=== PATIENT | male | born 1980 | race Caucasian/White ===

== ENCOUNTER → 2023-05-28 | Outpatient (CLI) | payer OTHER, SELFPAY ==
[2023-05-28 10:15] LABS: Absolute Lymphocyte Count 2.23 X10^3/uL (0.83-4.51); Absolute Neutrophil Count 3.9 X10^3/uL (2.0-7.7); Basophil# 0.04 X10^3/uL; Basophil% 0.6 % (0-1); Eosinophils% 1.5 % (0-5); Hematocrit 42.4 % (40-54); Lymphocyte # 2.23 X10^3/ul (0.83-4.51); Lymphocyte % 32.6 % (19-41); Mean Corpuscular Hgb 29.9 pg (27.0-32.0); Mean Corpuscular Volume 90.4 fL (80-94); Mean Platelet Vol. 9.8 fl (6.2-12.0); Monocyte# 0.62 X10^3/uL; Monocyte% 9.1 % (0-10); NRBC Flagged by Analyzer 0 % (0-5); Neutrophil # 3.85 X10^3/uL (2.7-7.7); Neutrophil % 56.1 % (47-70); Platelet Count 317 K/mm3 (150-450); RBC Distribution Width CV 12.9 % (11.6-14.6); RBC Distribution Width SD 42.4 fl (35.1-43.9); Red Blood Count 4.69 M/mm3 (4.6-6.2); White Blood Count 6.9 K/mm3 (4.4-11.0)
[2023-05-28 11:01] LABS: ALB/GLOB Ratio 1.1 RATIO (0.9-2.4); AST(SGOT) 17 U/L (15-37); Alanine Aminotransfer ALT/SGPT 33 U/L (16-61); Alkaline Phosphatase 71 U/L (45-117); Anion Gap 6 (5-15); BUN 14 mg/dL (7-18); Calcium,Total 9.3 mg/dL (8.5-10.1); Chloride 109 mmol/L (98-107); Cholesterol 200 mg/dL (200); Creatinine, Serum 1.27 mg/dL (0.70-1.30); EST Glomerular Filtration Rate 66 mL/min (>60); Est Glom Filt Rate - Afr Amer 80 mL/min (>60); Globulin 3.8 g/dL (2.2-4.2); Glucose 102 mg/dL (74-106); High Density Lipoprotein 43 mg/dL; Potassium 4.2 mmol/L (3.5-5.1); Protein, Total 7.8 g/dL (6.4-8.2); Sodium Level 140 mmol/L (136-145); Thyroid Stim Hormone (TSH) 3.12 uIU/mL (0.358-3.74); Triglycerides 158 mg/dL; Very Low Density Lipoprotein 32 mg/dL (5-40)
== END | disposition home or self-care (01) ==
LOC: MTLAB 07:36
PROVIDERS: PCP Family Medicine; Visit Provider Family Medicine
DX: Z00.00 Encounter for general adult medical examination without abnormal findings (principal)
CPT/HCPCS: 36415; 80053; 80061; 84443; 85025

== ENCOUNTER 2024-02-23 17:09 | Inpatient (IN) | payer OTHER, SELFPAY ==
[2024-02-23] VITALS (12 sets, daily range): BP systolic 104–155; BP diastolic 61–115; PULSE 75–120; RESP 16–19; TEMP 36.2–38.5; O2SAT 95–100; BMI 38.6
--- NOTE | 2024-02-23 17:21 | CT_ITS ---
STUDY: CT ABDOMEN AND PELVIS WITH CONTRAST REASON FOR EXAM: Male, 44 years old. RLQ abd pain RADIATION DOSAGE (If Supplied By Facility): CTDIvol = ( 15.41 ) mGy, DLP = ( 1350.2 ) mGycm TECHNIQUE: Transaxial images were obtained from the dome of the diaphragm to the symphysis pubis without oral contrast. IV 100mL Isovue-370 was administered. Sagittal and coronal images were reconstructed. Individualized dose optimization techniques were used for this CT. COMPARISON: None. FINDINGS: The visualized lung bases are unremarkable. The visualized portions of the heart are within normal limits. This is subtly enhancing 1.7 cm nodular area within the right lobe of the liver. Normal gallbladder and extrahepatic biliary system. Normal spleen. Normal pancreas. Normal bilateral adrenal glands. Normal right kidney. Normal left kidney. Normal visualized stomach. Normal small intestine. Normal colon. The appendix is fluid distended with an appendicolith and surrounding inflammation. This is compatible with acute appendicitis.. Normal abdominal aorta. Normal inferior vena cava. Normal retroperitoneum. Normal urinary bladder. Normal abdominal wall. Normal osseous structures. CT/Abdomen/Pelvis W IV Cont ONLY IMPRESSION: The appendix is fluid distended with an appendicolith and surrounding inflammation. This is compatible with acute appendicitis.. Electronically Signed: Ar Martinez DO at 18:28 EDT ,
--- NOTE | 2024-02-23 17:22 | ED.VIS.GI ---
HPI HPI - GI History of Present Illness Chief Complaint: Abd Pain Detail of Chief Complaint: Abdominal pain Informant: patient Narrative Narrative: Patient presents with abdominal pain that started 3 days ago. Initially was mild. He had decreased stool frequency. He had some loose stools the day the pain started so he took some Pepto and then noticed that afterwards his stool was black. Patient developed fever and some chills. He had no vomiting. Denies cough or sore throat or bodyaches. He had decreased appetite today and sleeping more. [facility] Medical History (Updated 02/23/24 @ 18:[address] Yusef Parsk MD) Severe headache Home Medications ?Medication ?Instructions ?Recorded ?Last Taken ?Type cetirizine 10 mg tablet (24Hour 10 mg PO DAILY PRN allergy symptoms 02/23/24 Unknown History Allergy) Allergy/AdvReac Type Severity Reaction Status Date / Time No Known Allergies Allergy Verified 02/23/24 17:11 Surgical History (Updated 02/23/24 @ 17:40 by Alondra Rojas) H/O vasectomy History of tonsillectomy and adenoidectomy Social History Smoking Status: Current every day smoker tobacco type: e-cigarettes ROS ROS ED Review of Systems ROS Unobtainable: other Constitutional Constitutional ED: Reports lethargy; Denies chills, fever(s), sweats or weight loss Eyes Eyes: Denies blurry vision, change in vision or diplopia ENT ENT ED: Denies rhinorrhea or sore throat Cardiovascular Cardiovascular: Denies chest pain, orthopnea or racing heartbeat Respiratory/Chest Respiratory/Chest: Denies cough, dyspnea, dyspnea on exertion, orthopnea or sputum Gastrointestinal Gastrointestinal: Reports abdominal pain and nausea; Denies diarrhea or vomiting Genitourinary Genitourinary ED: Denies dysuria, hematuria or urinary frequency Musculoskeletal Musculoskeletal: Denies arthralgias, back pain, myalgias or neck pain Integumentary Denies abscess, Abrasions or rash Neurologic Neurologic: Denies headache(s) or weakness Psychiatric Psychiatric: Denies anxiety, depression or suicidal thoughts Endocrine Endocrinology: Denies polydipsia, polyphagia or polyuria Hematologic/Lymphatic Hematologic/Lymphatic: Denies easy bleeding, easy bruising or lymphadenopathy Allergic/Immunologic Allergic/Immunologic ED: Denies mouth swelling, tongue swelling or urticaria EXAM Physical Exam Const Vital Signs: 02/23/24 17:11 02/23/24 17:44 02/23/24 18:16 Temperature 100.2 F H 101.3 F H Temperature Source Temporal Pulse Rate 120 H 102 H Respiratory Rate 18 16 Respiratory Effort Normal Non-Labored Respiratory Pattern Normal Blood Pressure 153/115 H 146/77 H Blood Pressure Mean 127 100 Blood Pressure Source Blood Pressure Position Blood Pressure Location Pulse Ox 100 98 Oxygen Delivery Method Room Air 02/23/24 18:31 Temperature 101.3 F H Temperature Source Oral Pulse Rate 112 H Respiratory Rate 17 Respiratory Effort Respiratory Pattern Blood Pressure 155/76 H Blood Pressure Mean 102 Blood Pressure Source Monitor Blood Pressure Position Semi-Fowlers Blood Pressure Location Right Arm Pulse Ox 98 Oxygen Delivery Method Room Air Positive well nourished and well developed General Appearance ED: well developed and NAD HEENT Reports TM's clear and moist mucous membranes normocephalic and atraumatic; Negative for trauma or tenderness Tympanic Membrane ED: Yes TM's clear Eyes PERRL and EOMs intact bilaterally General Eye ED: Negative for pale conjunctiva or scleral icterus Neck no lymphadenopathy, supple and no JVD General: Negative for tenderness Chest Wall inspection of chest normal and palpation of chest normal Chest: Negative for tenderness Resp normal respiratory effort and clear to auscultation bilaterally Effort and Inspection: Negative for respiratory distress or pain with movement Auscultation: Negative for rhonchi, wheezes or diminished lung sounds Cardio regular rate, regular rhythm, S1 normal heart sound, S2 normal heart sound and no murmurs Peripheral Pulses: pulses 2+ throughout GI normal to inspection, nondistended, normoactive bowel sounds, soft to palpation, non-distended and no masses GI Narrative: Patient with tenderness palpation over the right lower quadrant with some guarding. There is no rebound or rigidity. Pain over McBurney's. Back/Spine no CVA tenderness and no thoracic nor lumbar tenderness Extremity normal to inspection General Extremety ED: Negative for edema General Extremity: Negative for edema Neuro oriented x3, CN's II-XII intact bilaterally, no sensory deficits noted and gait normal Sensorium / Orientation: awake, alert, oriented to person, oriented to place and oriented to time Motor Exam: strength 5/5 throughout and strength abnormal Psych mental status grossly normal Skin no rashes or lesions noted and no wounds MDM MDM MDM Narrative Medical decision making narrative: Patient presents With right lower quadrant pain for 3 days. He has anorexia. Exam consistent with pain over McBurney's point. In the differential would be acute appendicitis versus mesenteric adenitis or kidney stone or UTI. IV line established. CBC with differential obtained for an elevated white count of 14.8 with hemoglobin 13 and platelet count of 256. Chemistries pending. Urinalysis pending. I did obtain a CT scan with IV contrast of the abdomen and pelvis which on my interpretation shows a dilated appendix with inflammatory changes in the right lower quadrant consistent with acute appendicitis. I discussed case with general surgeon Dr. Parks who will evaluate patient for operative intervention. I did start patient on Zosyn IV. Lab Data Attestation: I reviewed the patient's lab results. Labs: Laboratory Results - last 24 hr 02/23/24 17:33 WBC 14.8 H RBC 4.54 L Hgb 13.5 Hct 40.4 MCV 89.0 MCH 29.7 MCHC 33.4 RDW Std Deviation 43.7 RDW Coeff of Nilda 13.3 Plt Count 256 MPV 9.3 Immature Gran % (Auto) 0.300 Neut % (Auto) 82.2 H Lymph % (Auto) 9.7 L Scurry % (Auto) 7.4 Eos % (Auto) 0.2 Baso % (Auto) 0.2 Absolute Neuts (auto) 12.2 H Absolute Lymphs (auto) 1.43 Nucleated RBC % 0 Sodium 136 Potassium 4.2 Chloride 104 Carbon Dioxide 28.0 Anion Gap 4 L BUN 12 Creatinine 1.16 Estim Creat Clear Calc 110.82 Est GFR (MDRD) Af Amer 88 Est GFR (MDRD) Non-Af 73 BUN/Creatinine Ratio 10.3 Glucose 115 H Lactic Acid 1.1 Calcium 9.0 Total Bilirubin 0.60 AST 16 ALT 24 Alkaline Phosphatase 77 Total Protein 7.5 Albumin 3.9 Globulin 3.6 Albumin/Globulin Ratio 1.1 Radiography Diagnostic Testing: Clinical Impression(s) from Imaging Studies Abdomen/Pelvis CT 02/23/24 17:21 IMPRESSION: The appendix is fluid distended with an appendicolith and surrounding inflammation. This is compatible with acute appendicitis.. Electronically Signed: Ar Martinez DO at 18:28 EDT , EKG Initial EKG: Attestation: I personally reviewed and interpreted this EKG as follows: Comments: Sinus rhythm with rate of 109 bpm with no acute ST segment changes Discharge Plan Dx/Rx/DC Orders Clinical Impression: Abdominal pain, Acute appendicitis Disposition Disposition: Acute Care Hospital [facility] Discharge Date/Time: 02/23/24 18:44
[2024-02-23] MEDS: 0.9% Normal Saline (1000mL) 1,000 ML 125 ML IV ×2 (17:42→22:56)
[2024-02-23 17:43] LABS: Absolute Lymphocyte Count 1.43 X10^3/uL (0.83-4.51); Absolute Neutrophil Count 12.2 X10^3/uL (2.0-7.7); Basophil# 0.03 X10^3/uL; Basophil% 0.2 % (0-1); Eosinophil# 0.03 X10^3/uL; Eosinophils% 0.2 % (0-5); Hematocrit 40.4 % (40-54); Hemoglobin 13.5 g/dL (13.0-16.5); Lymphocyte # 1.43 X10^3/ul (0.83-4.51); Lymphocyte % 9.7 % (19-41); Mean Corp Hgb Conc 33.4 g/dL (32-36); Mean Corpuscular Hgb 29.7 pg (27.0-32.0); Mean Platelet Vol. 9.3 fl (6.2-12.0); Monocyte# 1.09 X10^3/uL; Monocyte% 7.4 % (0-10); NRBC Flagged by Analyzer 0 % (0-5); Neutrophil # 12.17 X10^3/uL (2.7-7.7); Neutrophil % 82.2 % (47-70); Platelet Count 256 K/mm3 (150-450); RBC Distribution Width CV 13.3 % (11.6-14.6); RBC Distribution Width SD 43.7 fl (35.1-43.9); Red Blood Count 4.54 M/mm3 (4.6-6.2); White Blood Count 14.8 K/mm3 (4.4-11.0)
[2024-02-23 18:04] LABS: ALB/GLOB Ratio 1.1 RATIO (0.9-2.4); AST(SGOT) 16 U/L (15-37); Alanine Aminotransfer ALT/SGPT 24 U/L (16-61); Albumin, Serum 3.9 g/dL (3.2-5.0); Alkaline Phosphatase 77 U/L (45-117); Anion Gap 4 (5-15); BUN 12 mg/dL (7-18); BUN/Creat Ratio 10.3 RATIO (10-20); Chloride 104 mmol/L (98-107); Creatinine, Serum 1.16 mg/dL (0.70-1.30); EST Glomerular Filtration Rate 73 mL/min (>60); Est Glom Filt Rate - Afr Amer 88 mL/min (>60); Estimated Creatinine Clearance 110.82 ml/min; Globulin 3.6 g/dL (2.2-4.2); Glucose 115 mg/dL (74-106); Potassium 4.2 mmol/L (3.5-5.1); Protein, Total 7.5 g/dL (6.4-8.2); Sodium Level 136 mmol/L (136-145)
--- NOTE | 2024-02-23 18:12 | NURSING ---
SURGERY THEN MED SURG JONY CARRIZALES PAIN, ACUTE APPENDICITIS
[2024-02-23 18:13] LABS: Lactic Acid 1.1 mmol/L (0.4-1.9)
[2024-02-23] MEDS: Piperacil/Tazobactam 4.5 GM in 0.9% Normal Saline (100mL MB+) 100 ML IV (18:16)
--- NOTE | 2024-02-23 18:22 | EKG12_ITS ---
Test Reason : PRE-OP Blood Pressure : / mmHG Vent. Rate : 109 BPM Atrial Rate : 109 BPM P-R Int : 136 ms QRS Dur : 098 ms QT Int : 334 ms P-R-T Axes : 026 -10 025 degrees QTc Int : 449 ms Sinus tachycardia Otherwise normal ECG Confirmed by CELESTINA MCKEON, GAMA ([id number]), fan mail editor FARIHA BA ([id number]) on 02/25/2024 8:22:44 AM Referred By: Yusef Parks Confirmed By:GAMA OSCAR MD
[2024-02-23 18:24] LABS: Bacteria 0 SEEN /hpf (None Seen); Mucous, Urine 0 SEEN /hpf (<or=2+); Red Blood Cells-Urine 0 SEEN /hpf (0-5); Squamous Epithelial Cells - UA 0 SEEN /hpf (0-5); White Blood Cells 0 SEEN /hpf (0-5)
[2024-02-23] MEDS: Ondansetron 4 MG/2 ML Vial IV (18:25)
[2024-02-23] MEDS: Morphine 4 MG/ML Syringe IV (18:26)
--- NOTE | 2024-02-23 18:32 | HP.PCM.SX_ITS ---
HPI - General HPI Narrative FLORIAN PRECIADO, is a 44 M who presents with abdominal pain for 2 days. Patient reports that he was having generalized abdominal pain on Thursday which was 2 days ago. He reports yesterday the pain moved down to the right lower quadrant he was having fevers. Today the pain persisted and he was still febrile so he came to the emergency room. He denies nausea or vomiting. The pain is in the right lower quadrant with no radiation. Patient does have a fever. [facility] Medical History (Updated 02/23/24 @ 18:[address] Yusef Parks MD) Severe headache Home Medications ?Medication ?Instructions ?Recorded ?Last Taken ?Type cetirizine 10 mg tablet (24Hour 10 mg PO DAILY PRN allergy symptoms 02/23/24 02/23/24 History Allergy) Allergy/AdvReac Type Severity Reaction Status Date / Time No Known Allergies Allergy Verified 02/23/24 17:11 Surgical History (Updated 02/23/24 @ 17:40 by Alondra Rojas) H/O vasectomy History of tonsillectomy and adenoidectomy Social History Smoking Status: Current every day smoker tobacco type: e-cigarettes ROS Constitutional Constitutional: Reports fatigue and fever(s); Denies anorexia or chills Eyes Eyes: Denies blurry vision ENT HEENT: Denies abnormal hearing Cardiovascular Cardiovascular: Denies chest pain Respiratory/Chest Respiratory/Chest: Denies cough or dyspnea Gastrointestinal Gastrointestinal: Reports abdominal pain; Denies diarrhea, dysphagia, nausea or vomiting Genitourinary Genitourinary: Denies difficulty urinating Musculoskeletal Musculoskeletal: Denies abnormal gait Integumentary Integumentary: Denies jaundice Neurologic Neurologic: Denies abnormal gait Psychiatric Psychiatric: Denies depression Endocrine Endocrinology: Denies flushing Vital Signs Vital Signs Vital Signs: 02/23/24 17:11 02/23/24 17:44 02/23/24 18:16 Temperature 100.2 F H 101.3 F H Temperature Source Temporal Pulse Rate 120 H 102 H Respiratory Rate 18 16 Respiratory Effort Normal Non-Labored Respiratory Pattern Normal Blood Pressure 153/115 H 146/77 H Blood Pressure Mean 127 100 Pulse Ox 100 98 Oxygen Delivery Method Room Air Weight Weight: 276 lb 14.4 oz Body Mass Index (BMI) 38.6 Physical Exam Const oriented x3 and no apparent distress Resp normal respiratory effort Cardio regular rate and regular rhythm GI soft to palpation Palpation: tender RLQ Extremity normal to inspection Results Lab / Micro Data 02/23/24 17:33 02/23/24 17:33 Labs: Laboratory Results - last 24 hr 02/23/24 17:33: WBC 14.8 H, RBC 4.54 L, Hgb 13.5, Hct 40.4, MCV 89.0, MCH 29.7, MCHC 33.4, RDW Std Deviation 43.7, RDW Coeff of Nilda 13.3, Plt Count 256, MPV 9.3, Immature Gran % (Auto) 0.300, Neut % (Auto) 82.2 H, Lymph % (Auto) 9.7 L, Nash % (Auto) 7.4, Eos % (Auto) 0.2, Baso % (Auto) 0.2, Absolute Neuts (auto) 12.2 H, Absolute Lymphs (auto) 1.43, Nucleated RBC % 0, Sodium 136, Potassium 4.2, Chloride 104, Carbon Dioxide 28.0, Anion Gap 4 L, BUN 12, Creatinine 1.16, Estim Creat Clear Calc 110.82, Est GFR (MDRD) Af Amer 88, Est GFR (MDRD) Non-Af 73, BUN/Creatinine Ratio 10.3, Glucose 115 H, Lactic Acid 1.1, Calcium 9.0, Total Bilirubin 0.60, AST 16, ALT 24, Alkaline Phosphatase 77, Total Protein 7.5, Albumin 3.9, Globulin 3.6, Albumin/Globulin Ratio 1.1 Imaging Radiology Impression Abdomen/Pelvis CT 02/23/24 17:21 IMPRESSION: The appendix is fluid distended with an appendicolith and surrounding inflammation. This is compatible with acute appendicitis.. Electronically Signed: Ar Martinez DO at 18:28 EDT Reading Location ID and State: [facility] / [place] Tel [phone], Service support , Assessment & Plan Assessment/Plan (1) Acute appendicitis: QUALIFIERS: Acute appendicitis type: unspecified acute appendicitis type Qualified Code(s): K35.80 - Unspecified acute appendicitis PLAN: The patient's CT has not been officially read but it appears to be showing an inflamed appendix. The patient is febrile with an elevated white count. Patient's story is consistent with appendicitis as well. I discussed that the appendix may be perforated. I discussed laparoscopic appendectomy with the patient in detail. I discussed the risks including but not limited to bleeding, infection, injury to other organs such as the bowel, bladder or ureter. I also discussed the possibility of having converted to an open surgery to perform an ileocecectomy if he is perforated and I am not able to staple across the base of the appendix. Patient understands the risks and wanted proceed. Patient is given antibiotics in the emergency room and will be admitted after surgery. Yusef Parks MD Pager: [facility] [address] [place] [address] [address] [place] [address] Office:
[2024-02-23 18:45] LABS: Color, Urine Yellow (Yellow); Glucose, Dipstick Normal (Normal); Ketone-Dipstick Negative (Negative); Leukocyte Esterase-Dipstick Negative /ul (Negative); Nitrite-Dipstick Negative (Negative); Occult Blood-Urine Negative /ul (Negative); Protein-Dipstick Negative (Negative); Specific Gravity, Urine 1.005 (1.002-1.030); Urine Bilirubin Dipstick Negative (Negative); Urine Clarity Clear (Clear); Urine Urobilinogen Normal (Normal)
--- NOTE | 2024-02-23 19:20 | COL_PTH ---
PATIENT: FLORIAN PRECIADO LOC: MS3 U#:[id number] AGE/SX: 44/M ROOM: [facility]316 RE02/23/[address]: Dr. Yusef Parks MD : 1980 BED: 1 DIS: 02/29/2024 SPEC #: [id number] RECD: 02/24/24 09:21 STATUS: MONICA DICKSON #: [id number] CHUCK: 02/23/24 19:[address]: Yusef Parks DEPT: SURGICAL PATHOLOGY RECD BY: Scarlet Davenport ENTERED: 02/24/24 11:02 SP TYPE: COLON OTHR DR: Dr. Dick Winters MD Tissues: A - APPENDIX (INCIDENTAL) B - HERNIA C - Colon, NOS Procedures: Surgery Specimen Level II Surgery Specimen Level V HEADER OPERATION: Attempted laparoscopic, appendectomy, open ileocecectomy PRE-OP DIAGNOSIS: Acute appendicitis TISSUE SUBMITTED: A- Appendix, B- Hernia sac, C- Cecum MICROSCOPIC DIAGNOSIS A. Appendix, appendectomy: Acute necrotizing appendicitis. Acute serositis. B. Hernia sac, herniorrhaphy: Fragments of benign fibrofatty tissue consistent with hernia sac. C. Cecum, segmental resection: Acute serositis. Fat necrosis. Appendiceal stump with no significant pathologic change. Mucosal margins of excision with no pathologic change. Seven out of seven lymph nodes with no pathologic change. / 02/26/2024 MICROSCOPIC DESCRIPTION Slides are reviewed. GROSS DESCRIPTION A. Received in fixative is one container labeled with the patient's name and designated appendix. The specimen consists of an appendix received in five fragments ranging in size from 1.5cm to 5.0cm. No gross perforations are evident. Serial sections reveal a patent lumen with fecal material. The distal tip is not identified. No mass lesion is identified. [employer] sections are submitted in one cassette. / B. Received in fixative is one container labeled with the patient's name and designated Hernia sac. The specimen consists of an irregular fragment of yellow-nowak fatty tissue measuring 2.6 x 2.5 x 1.2cm. Serial sections do not reveal mass lesions. [employer] Teacher sections are submitted in one cassette. C. Received in fixative is one container labeled with the patient's name and designated Cecum. The specimen consists of a 5.0cm segment of cecum with attached 11.0cm segment of terminal ileum and a grossly unremarkable ileocecal valve. The appendiceal bed is granular, hemorrhagic and has a brumfield-nowak discoloration. A 1.2cm of appendiceal stump is present in approximated with metallic kunal. No mucosal mass lesions are identified. Also present free in the container is a mucosal donut measuring 3.0cm in length and 1.0cm in thickness. No mass lesions are identified in this mucosal donut. The attached fibrofatty tissue contains a number of grossly unremarkable nodules resembling lymph nodes. [employer] Teacher sections are submitted as follows: 1- Mucosal margins, 2- Ileocecal valve, 3- Uninvolved small and large bowel, 4- Mucosal donut free in container, 5-6- Appendiceal stump with adjacent soft tissue, 7-8- Lymph nodes. AM: 02/25/2024 TC:2 CPT: 81750,[id number]
--- NOTE | 2024-02-23 19:28 | PRE.ANES_ITS ---
ASA Classification* ASA Classification ASA Classification: 3 (BMI elevated) and E Assessment & Plan Anesthesia* Anesthesia Assessment Anesthesia Assessment: Discussed sedation and/or anesthesia options, risks, benefits, and alternatives with patient/parents/legal guardian/POA. Questions invited. The patient/parents/legal guardian/POA seems to understand and agrees to proceed with anesthesia plan. Reviewed the physical assessment, medical history, allergy history and patient home medications list prior to surgery/procedure/anesthetic and documented any changes. Performed airway and anesthesia risk assessments. Anesthesia Type Anesthesia Type: General (RSI, Glidescope 4. 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 When Was Last Pacemaker Check QUESTION #4 FULL TEXT: You/Your Family Experience fever (hyperthermia) with Anesthesia Last Oral Intake Last Oral intake: Last Oral Intake NPO since 17:00 02/23/24 18:31 Meds taken in AM with sips of No 02/23/24 18:31 water? Meds patient instructed to take am of surgery PONV PONV - search engine marketing manager: PONV - search engine marketing manager Female HX of Motion Sickness HX of N/V After Surgery Non-Smoker Duration of Surgery greater than 60 minutes Number of Risk Factors PONV Score Height & Weight Height & Weight: Anesthesia: Height & Weight Height 5 ft 11 in 02/23/24 18:31 Weight: 125.6 kg 02/23/24 18:31 Body Mass Index (BMI) 38.6 02/23/24 18:31 Respiratory Assessment Respiratory Assessment - search engine marketing manager: Respiratory Tract Infection Hx - search engine marketing manager Hx Respiratory Tract Infection No 02/23/24 18:31 STOP Sleep Apnea STOP Sleep Apnea - search engine marketing manager: STOP Sleep Apnea - search engine marketing manager Hx Hypertension No 02/23/24 18:31 Hx Sleep Apnea No 02/23/24 18:31 CPAP BIPAP Do you snore loudly (louder Yes 02/23/24 18:31 than talking or can be heard Do you often feel tired/ No 02/23/24 18:31 fatigued/ sleepy during daytime? Has anyone observed you stop No 02/23/24 18:31 breathing during sleep? STOP Results Negative 02/23/24 18:31 QUESTION #5 FULL TEXT : Do you snore loudly (louder than talking or can be heard through closed doors)? 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 Specify any problems Hx of Preganancy in last 3 Months Nurse Filling Out Transfusion & Questions: Date: Time: Patient unable to answer at this time (ie. confused, unrespo /Reproduction History /Reproductive History - search engine marketing manager: /Reproductive Hx- search engine marketing manager Hx Now No 02/23/24 18:31 Gestational Age (in weeks): EDC: Hx Hx Para Hx Section SAB No 02/23/24 18:31 Active Medications Active Medications: Current Medications Generic Name Dose Route Start Last Admin Trade Name Freq PRN Reason Stop Dose Admin Sodium Chloride 1,000 mls @ 125 mls/hr 02/23/24 17:25 02/23/24 17:42 IV 125 mls/hr .Q8H RICARDA Administration Anesthesia Focused Assessment* Temperature: 101.3 F Pulse Rate: 112 Blood Pressure: 155/76 Respiratory Rate: 17 Pulse Ox: 98 Airway Assessment Mouth opens: >3 cm Mallampati Score: II Focused Labs Anesthesia Preop lab: CBC WBC 14.8 K/mm3 (4.4-11.0) H 02/23/24 17:33 RBC 4.54 M/mm3 (4.6-6.2) L 02/23/24 17:33 Hgb 13.5 g/dL (13.0-16.5) 02/23/24 17:33 Hct 40.4 % (40-54) 02/23/24 17:33 Plt Count 256 K/mm3 (150-450) 02/23/24 17:33 CHEMISTRY Potassium 4.2 mmol/L (3.5-5.1) 02/23/24 17:33 Sodium 136 mmol/L (136-145) 02/23/24 17:33 BUN 12 mg/dL (7-18) 02/23/24 17:33 Creatinine 1.16 mg/dL (0.70-1.30) 02/23/24 17:33 Glucose 115 mg/dL (74-106) H 02/23/24 17:33 TSH 3.12 uIU/mL (0.358-3.74) 05/28/23 07:36 COAG Review of Systems (Anesthesia) ROS Narrative System reviewed and no additional complaints, except as documented. [facility] Medical History Severe headache Home Medications ?Medication ?Instructions ?Recorded ?Last Taken ?Type cetirizine 10 mg tablet (24Hour 10 mg PO DAILY PRN allergy symptoms 02/23/24 02/23/24 History Allergy) Allergy/AdvReac Type Severity Reaction Status Date / Time No Known Allergies Allergy Verified 02/23/24 17:11 Surgical History H/O vasectomy History of tonsillectomy and adenoidectomy Social History Smoking Status: Current every day smoker tobacco type: e-cigarettes
[2024-02-23] MEDS: Lactated Ringers 1,000 ML 15 ML IV (20:20)
[2024-02-23] MEDS: Bupiv/Epi 0.25% 30 ML Vial (21:34)
--- NOTE | 2024-02-23 21:45 | PCM.OPRPT ---
Report of Operation Date of Procedure: 02/23/24 Pre-Operative Diagnosis: Acute appendicitis Post-Operative Diagnosis: Acute appendicitis with perforation and peritonitis Surgery/Procedure Performed:: Laparoscopic appendectomy converted to open ileocecectomy Description of Surgical Findings:: Very inflamed appendix with perforation at the base and a large fecalith Type of Anesthesia: General/Regional Specimen's removed: 1. Appendix 2. Cecum 3. Hernia sac Drains: SAMY to bulb suction Estimated Blood Loss (mL): 30 Description of Procedure: Patient was brought back to the operating room and general anesthesia was induced. The abdomen was prepped and draped in usual sterile fashion. Midline incision was made superior to the umbilicus and deepened to the fascia which was elevated and incised. A port was placed into the abdomen and the abdomen is insufflated 15 mmHg. Under direct visualization a left lower quadrant 5 mm port was placed as well as a suprapubic 5 mm port. The patient was placed in Trendelenburg position. The appendix was tightly socked into the right lower quadrant and unable to be mobilized. It appeared very inflamed and stuck to the psoas. Manipulation of the appendix immediately resulted in rupture with the appendicolith rupturing through the wall at the base. The segment of the appendix close to the base was removed from its mesentery and placed in a bag as well as the fecalith. The area was suctioned and inspected. The distal portion of the appendix was still in place and socked in. It was dissected free and removed from its mesentery using Enseal. The area is irrigated and suctioned dry and hemostasis was maintained. The stump of the appendix was identified. I tried to staple across the base but it appeared very inflamed I did not trust the staple line and I believe it had a high likelihood of the leak. At this time we decided to convert to ileocecectomy. The laparoscopic instruments were removed as well as the ports. A midline incision was created using the previous midline incision. Wound protector was placed. The white line of Toldt was dissected free bluntly superiorly until the hepatic flexure was encountered and the hepatic flexure was taken down with electrocautery under direct visualization. Next the cecum was divided using a DOT stapler. The distal limb was also divided using a DOT stapler. The mesentery was taken down using LigaSure impact. Next the corner of each staple line was removed and the distal small bowel was stapled to the colon and a [id number] functional end and anastomosis at a tenia. The staple line was inspected and had good hemostasis. The enterostomy was grasped with Babcocks and closed with a TX 60 stapler. Hemostasis was obtained using 3-0 silk suture. A 3-0 silk suture was used for a crotch suture. 3-0 Vicryl suture was used to close the mesenteric defect as best as possible but it was very inflamed. The bowel was inspected once more and there is no sign of leak or bleeding. It was returned to the abdomen. The abdomen was irrigated copiously and suctioned dry. A drain was placed through the left lower quadrant port site and into the pelvis with the tip of the drain resting over the abscess cavity where the appendix was. The drain was sutured in using 3-0 nylon suture. Next the omentum was draped over the bowel and the fascia was closed with two #1 PDS sutures meeting in the middle. The subcutaneous tissue was irrigated and suction and the skin was anesthetized with local anesthetic. The midline incision was reapproximating at the dermal level with 3-0 Vicryl suture. The small port sites were closed with 4-0 Monocryl suture and the large midline incision was stapled closed at the skin. Dressings were applied and patient was awoken and taken to PACU in stable condition. Admit VTE Documentation VTE Mechan Device Prophylaxis: SCD's
--- NOTE | 2024-02-23 22:09 | PCM.POST.ANE ---
Anesthesia: Postop Eval I Current Vital Signs Temperature: 97.2 F Pulse Rate: 77 Blood Pressure: 107/61 Respiratory Rate: 19 Pulse Ox: 100 Oxygen Delivery Method: Simple Mask (8L) Assessment Airway patent: Yes Spontaneous unlabored respirations: Yes nausea: No Vomiting: No Anesthesia Complication: No Fluid Hydration Crystalloid volume administer (ml): 1,300 Total IV fluid infused: 1,300 Progress Note Anesthesia document: Postop Eval 1 completed: Yes
--- NOTE | 2024-02-23 22:11 | POSTOPAN2_ITS ---
Anesthesia Postop Eval I Sum Postop Eval Completion status Anesthesia document: Postop Eval 1 completed: Yes Anesthesia Postop Eval I Summary Anesthesia Postop Eval I Summary: Anesthesia Postop Eval I: Assessment Summary Airway patent Yes 02/23/24 22:11 YARD GOODS [email or web address] Spontaneous unlabored Yes 02/23/24 22:11 YARD GOODS [email or web address] respirations Mental status Asleep 02/23/24 22:11 YARD GOODS [email or web address] nausea No 02/23/24 22:11 YARD GOODS [email or web address] Vomiting No 02/23/24 22:11 YARD GOODS [email or web address] Anesthesia Postop Eval I: Fluid Summary Crystalloid volume administer 1,300 02/23/24 22:11 YARD GOODS [email or web address] (ml) Colloids volume administered ( ml) Blood Product volume administered (ml) Total IV fluid infused 1,300 02/23/24 22:11 YARD GOODS [email or web address] Anesthesia Postop Eval I: Summary Notes Anesthesia Complication No 02/23/24 22:11 YARD GOODS [email or web address] Anesthesia Complication Comment: Post-operative progress note Anesthesia: Postop Eval II Complications Anesthesia Complication: No
--- NOTE | 2024-02-23 22:11 | POSTOPAN2_ITS ---
Anesthesia Postop Eval I Sum Postop Eval Completion status Anesthesia document: Postop Eval 1 completed: Yes Anesthesia Postop Eval I Summary Anesthesia Postop Eval I Summary: Anesthesia Postop Eval I: Assessment Summary Airway patent Yes 02/23/24 22:11 [email or web address] Spontaneous unlabored Yes 02/23/24 22:11 RECREATION [email or web address] respirations Mental status nausea No 02/23/24 22:11 RECREATION [email or web address].[email or web address] Vomiting No 02/23/24 22:11 RECREATION [email or web address] Anesthesia Postop Eval I: Fluid Summary Crystalloid volume administer 1,300 02/23/24 22:11 [email or web address] (ml) Colloids volume administered ( ml) Blood Product volume administered (ml) Total IV fluid infused 1,300 02/23/24 22:11 RECREATION [email or web address] Anesthesia Postop Eval I: Summary Notes Anesthesia Complication No 02/23/24 22:11 RECREATION [email or web address] Anesthesia Complication Comment: Post-operative progress note Anesthesia: Postop Eval II Evaluation Mental status: Asleep Pain Level: 0 nausea: No Vomiting: No
--- NOTE | 2024-02-23 22:11 | PCM.POSTANE2 ---
Anesthesia Postop Eval I Sum Postop Eval Completion status Anesthesia document: Postop Eval 1 completed: Yes Anesthesia Postop Eval I Summary Anesthesia Postop Eval I Summary: Anesthesia Postop Eval I: Assessment Summary Airway patent Yes 02/23/24 22:11 BODY [email or web address] Spontaneous unlabored Yes 02/23/24 22:11 BODY [email or web address] respirations Mental status nausea No 02/23/24 22:11 BODY [email or web address].[email or web address] Vomiting No 02/23/24 22:11 BODY [email or web address] Anesthesia Postop Eval I: Fluid Summary Crystalloid volume administer 1,300 02/23/24 22:11 BODY [email or web address] (ml) Colloids volume administered ( ml) Blood Product volume administered (ml) Total IV fluid infused 1,300 02/23/24 22:11 BODY [email or web address] Anesthesia Postop Eval I: Summary Notes Anesthesia Complication No 02/23/24 22:11 BODY [email or web address] Anesthesia Complication Comment: Post-operative progress note Anesthesia: Postop Eval II Evaluation Mental status: Asleep Pain Level: 0 nausea: No Vomiting: No
--- NOTE | 2024-02-23 22:11 | PCM.POSTANE2 ---
Anesthesia Postop Eval I Sum Postop Eval Completion status Anesthesia document: Postop Eval 1 completed: Yes Anesthesia Postop Eval I Summary Anesthesia Postop Eval I Summary: Anesthesia Postop Eval I: Assessment Summary Airway patent Yes 02/23/24 22:11 [email or web address] [email or web address] Spontaneous unlabored Yes 02/23/24 22:11 [email or web address] [email or web address] respirations Mental status Asleep 02/23/24 22:11 [email or web address] [email or web address] nausea No 02/23/24 22:11 CARPET [email or web address].[email or web address] Vomiting No 02/23/24 22:11 CARPET [email or web address] Anesthesia Postop Eval I: Fluid Summary Crystalloid volume administer 1,300 02/23/24 22:11 CARPET [email or web address] (ml) Colloids volume administered ( ml) Blood Product volume administered (ml) Total IV fluid infused 1,300 02/23/24 22:11 CARPET [email or web address] Anesthesia Postop Eval I: Summary Notes Anesthesia Complication No 02/23/24 22:11 CARPET [email or web address] Anesthesia Complication Comment: Post-operative progress note Anesthesia: Postop Eval II Complications Anesthesia Complication: No
[2024-02-23] MEDS: Ketorolac 15 MG/ML Vial IV (22:56)
[2024-02-24] VITALS (8 sets, daily range): BP systolic 115–129; BP diastolic 65–79; PULSE 82–105; RESP 16–18; TEMP 36.7–38.1; O2SAT 93–98
[2024-02-24] MEDS: Morphine 2 MG/ML Syringe IV ×4 (00:58→17:01)
[2024-02-24] MEDS: Piperacil/Tazobactam 3.375 GM in 0.9% Normal Saline (50mL MB+) 50 ML IV ×3 (05:53→21:35)
[2024-02-24] MEDS: 0.9% Normal Saline (1000mL) 1,000 ML 125 ML IV ×3 (05:54→21:27)
[2024-02-24 07:32] LABS: Absolute Lymphocyte Count 1.14 X10^3/uL (0.83-4.51); Absolute Neutrophil Count 10.5 X10^3/uL (2.0-7.7); Basophil# 0.02 X10^3/uL; Basophil% 0.2 % (0-1); Hemoglobin 12.1 g/dL (13.0-16.5); Lymphocyte # 1.14 X10^3/ul (0.83-4.51); Lymphocyte % 8.8 % (19-41); Mean Corp Hgb Conc 32.7 g/dL (32-36); Mean Corpuscular Hgb 29.5 pg (27.0-32.0); Mean Corpuscular Volume 90.2 fL (80-94); Mean Platelet Vol. 9.8 fl (6.2-12.0); Monocyte% 9.3 % (0-10); NRBC Flagged by Analyzer 0 % (0-5); Neutrophil # 10.47 X10^3/uL (2.7-7.7); Neutrophil % 81.2 % (47-70); Platelet Count 235 K/mm3 (150-450); RBC Distribution Width CV 13.9 % (11.6-14.6); White Blood Count 12.9 K/mm3 (4.4-11.0)
--- NOTE | 2024-02-24 07:58 | PCM.PN.SRG ---
Subjective Subjective Patient is painful this morning. Objective Data Objective Data Vital Signs: Vital Signs Temp Pulse Resp BP Pulse Ox O2 Del Method O2 Flow Rate 98.6 F 102 H 16 118/72 96 Nasal Cannula 2 02/24/24 06:28 02/24/24 06:28 02/24/24 06:28 02/24/24 06:28 02/24/24 06:28 02/24/24 06:28 02/24/24 06:28 Oxygen Flow Rate (L/min) 2 Oxygen Delivery Method Nasal Cannula Weight: 276 lb 14.4 oz Body Mass Index (BMI) 38.6 Intake & Output: Intake and Output for Last 24 Hours 02/22/24 02/23/24 02/24/24 23:59 23:59 23:59 Intake Total 1135.25 / 1135.25 870.83 / 870.83 Output Total 35 / 35 Balance 1100.25 / 1100.25 870.83 / 870.83 Lab / Micro Data 02/24/24 06:20 02/23/24 17:33 Labs: Laboratory Results - last 24 hr 02/23/24 17:33: WBC 14.8 H, RBC 4.54 L, Hgb 13.5, Hct 40.4, MCV 89.0, MCH 29.7, MCHC 33.4, RDW Std Deviation 43.7, RDW Coeff of Nilda 13.3, Plt Count 256, MPV 9.3, Immature Gran % (Auto) 0.300, Neut % (Auto) 82.2 H, Lymph % (Auto) 9.7 L, Island % (Auto) 7.4, Eos % (Auto) 0.2, Baso % (Auto) 0.2, Absolute Neuts (auto) 12.2 H, Absolute Lymphs (auto) 1.43, Nucleated RBC % 0, Sodium 136, Potassium 4.2, Chloride 104, Carbon Dioxide 28.0, Anion Gap 4 L, BUN 12, Creatinine 1.16, Estim Creat Clear Calc 110.82, Est GFR (MDRD) Af Amer 88, Est GFR (MDRD) Non-Af 73, BUN/Creatinine Ratio 10.3, Glucose 115 H, Lactic Acid 1.1, Calcium 9.0, Total Bilirubin 0.60, AST 16, ALT 24, Alkaline Phosphatase 77, Total Protein 7.5, Albumin 3.9, Globulin 3.6, Albumin/Globulin Ratio 1.1 02/23/24 18:11: Urine Color Yellow, Urine Clarity Clear, Urine pH 7.0, Ur Specific [place] 1.005, Urine Protein Negative, Urine Glucose (UA) Normal, Urine Ketones Negative, Urine Occult Blood Negative, Urine Nitrite Negative, Urine Bilirubin Negative, Urine Urobilinogen Normal, Ur Leukocyte Esterase Negative, Urine RBC 0 SEEN, Urine WBC 0 SEEN, Ur Squamous Epith Cells 0 SEEN, Urine Bacteria 0 SEEN, Urine Mucus 0 SEEN 02/24/24 06:20: WBC 12.9 H, RBC 4.10 L, Hgb 12.1 L, Hct 37.0 L, MCV 90.2, MCH 29.5, MCHC 32.7, RDW Std Deviation 46.0 H, RDW Coeff of Nilda 13.9, Plt Count 235, MPV 9.8, Immature Gran % (Auto) 0.500, Neut % (Auto) 81.2 H, Lymph % (Auto) 8.8 L, Island % (Auto) 9.3, Eos % (Auto) 0.0, Baso % (Auto) 0.2, Absolute Neuts (auto) 10.5 H, Absolute Lymphs (auto) 1.14, Nucleated RBC % 0 Radiography Diagnostic Testing: Radiology Impression Abdomen/Pelvis CT 02/23/24 17:21 IMPRESSION: The appendix is fluid distended with an appendicolith and surrounding inflammation. This is compatible with acute appendicitis.. Electronically Signed: Ar Martinez DO at 18:28 EDT Reading Location ID and State: [address] [place] [address] Tel [phone], Service support , Physical Exam Const oriented x3 and no apparent distress Resp normal respiratory effort GI soft to palpation Inspection: Negative for abdominal distention Palpation: tender Assessment & Plan Assessment/Plan (1) Acute appendicitis: QUALIFIERS: Acute appendicitis type: unspecified acute appendicitis type Qualified Code(s): K35.80 - Unspecified acute appendicitis PLAN: The patient had ileocecectomy yesterday evening for perforated appendicitis. Patient is painful this morning. His white count is decreasing. Continue antibiotics and IV fluids. Await bowel function. Pain control. Encourage incentive spirometer. Start Lovenox tomorrow. Yusef Parks MD Pager: [facility] [address] [place] [address], [address] [place] [address] Office:
[2024-02-24 08:01] LABS: Anion Gap 3 (5-15); BUN 14 mg/dL (7-18); BUN/Creat Ratio 11.4 RATIO (10-20); Calcium,Total 8.4 mg/dL (8.5-10.1); Chloride 108 mmol/L (98-107); Creatinine, Serum 1.23 mg/dL (0.70-1.30); EST Glomerular Filtration Rate 68 mL/min (>60); Est Glom Filt Rate - Afr Amer 83 mL/min (>60); Estimated Creatinine Clearance 104.51 ml/min; Glucose 115 mg/dL (74-106); Potassium 4.5 mmol/L (3.5-5.1); Sodium Level 138 mmol/L (136-145)
[2024-02-24] MEDS: Acetaminophen 325 MG Tablet 650 MG PO ×3 (08:43→21:36)
[2024-02-24] MEDS: Ketorolac 15 MG/ML Vial IV ×3 (08:43→21:31)
[2024-02-24] MEDS: 0.9% Saline Lock 10 ML Syringe IV ×3 (08:44→14:43)
[2024-02-24] MEDS: 0.9% Normal Saline (1000mL) 1,000 ML 999 ML IV (09:18)
[2024-02-24] MEDS: 0.9% Normal Saline (250mL Bag) 250 ML 15 ML IV (10:07)
--- NOTE | 2024-02-24 11:46 | CASEMGMT ---
FILIBERTO THOMPSON Assessment Face to Face with patient for initial transition planning/care coordination assessment. RN CM introduced self and role at [facility], pt voices understanding. Pt is A&Ox4 and is resting comfortably in bed and is calm. Care providers, pharmacy, and demographics verified. Admitting dx: Acute Appendicitis PCP: Dick Winters Specialists: Denies Preferred Pharmacy: [facility] Insurance: MMO Prescription Benefit: Yes LNOK: Emilie Costello (W) Living Arrangements: Pt lives at home with his , son (14 y/o), and daughter (20) in a two story home with 1 step to enter ADLs/IADLs: Ind Transportation: Self, DME: Denies HHC/SNF: Denies history or needs Pt?s goal: Home no needs Plan: Home no needs. Pt denies the need for HHC or OP therapy. Pt states that his only concern is conquering the stairs at home. Pt states that he has a recliner at home that he can use if he is unable to manage the steps. 6-click is 20. Pt denies further questions or concerns. CM to follow. Felix Sandoval RN, CM
[2024-02-24] MEDS: Tamsulosin HCl 0.4 MG Capsule PO (17:01)
[2024-02-25 05:00] VITALS: BP 127/78; PULSE 89; RESP 16; TEMP 37.2; O2SAT 96
[2024-02-25] MEDS: Ketorolac 15 MG/ML Vial IV ×4 (05:07→23:53)
[2024-02-25] MEDS: Acetaminophen 325 MG Tablet 650 MG PO ×3 (05:07→16:12)
[2024-02-25] MEDS: Piperacil/Tazobactam 3.375 GM in 0.9% Normal Saline (50mL MB+) 50 ML IV ×3 (05:11→21:45)
[2024-02-25] MEDS: 0.9% Normal Saline (1000mL) 1,000 ML 125 ML IV ×3 (05:15→20:28)
[2024-02-25 06:38] LABS: Absolute Lymphocyte Count 0.95 X10^3/uL (0.83-4.51); Absolute Neutrophil Count 9.2 X10^3/uL (2.0-7.7); Basophil# 0.03 X10^3/uL; Basophil% 0.3 % (0-1); Eosinophil# 0.26 X10^3/uL; Eosinophils% 2.3 % (0-5); Hematocrit 36.4 % (40-54); Hemoglobin 11.4 g/dL (13.0-16.5); Lymphocyte # 0.95 X10^3/ul (0.83-4.51); Lymphocyte % 8.4 % (19-41); Mean Corp Hgb Conc 31.3 g/dL (32-36); Mean Corpuscular Hgb 28.6 pg (27.0-32.0); Mean Corpuscular Volume 91.5 fL (80-94); Mean Platelet Vol. 9.8 fl (6.2-12.0); Monocyte# 0.85 X10^3/uL; Monocyte% 7.5 % (0-10); NRBC Flagged by Analyzer 0 % (0-5); Neutrophil % 81.1 % (47-70); Platelet Count 221 K/mm3 (150-450); RBC Distribution Width CV 13.7 % (11.6-14.6); RBC Distribution Width SD 46.6 fl (35.1-43.9); Red Blood Count 3.98 M/mm3 (4.6-6.2); White Blood Count 11.3 K/mm3 (4.4-11.0)
[2024-02-25 06:54] LABS: Anion Gap 7 (5-15); BUN 14 mg/dL (7-18); BUN/Creat Ratio 12.1 RATIO (10-20); Calcium,Total 8.5 mg/dL (8.5-10.1); Chloride 112 mmol/L (98-107); Creatinine, Serum 1.16 mg/dL (0.70-1.30); EST Glomerular Filtration Rate 73 mL/min (>60); Est Glom Filt Rate - Afr Amer 88 mL/min (>60); Estimated Creatinine Clearance 110.82 ml/min; Glucose 112 mg/dL (74-106); Potassium 4.2 mmol/L (3.5-5.1); Sodium Level 142 mmol/L (136-145)
--- NOTE | 2024-02-25 08:40 | PCM.PN.SRG ---
Subjective Subjective Patient had difficulty urinating yesterday and Faith catheter was placed. Other than that the patient reports he is comfortable. He is not passing gas and he feels rumbling. He denies nausea or vomiting. Pain is well-controlled. Objective Data Objective Data Vital Signs: Vital Signs Temp Pulse Resp BP Pulse Ox O2 Del Method O2 Flow Rate 99.0 F 89 16 127/78 H 96 Room Air 2 02/25/24 05:00 02/25/24 05:00 02/25/24 05:00 02/25/24 05:00 02/25/24 05:00 02/25/24 05:00 02/24/24 06:28 Oxygen Flow Rate (L/min) 2 Oxygen Delivery Method Room Air Weight: 276 lb 14.4 oz Body Mass Index (BMI) 38.6 Intake & Output: Intake and Output for Last 24 Hours 02/23/24 02/24/24 02/25/24 23:59 23:59 23:59 Intake Total 1135.25 / 1135.25 3949.49 / 3949.49 1079 / 1079 Output Total 35 / 35 1400 / 1400 250 / 250 Balance 1100.25 / 1100.25 2549.49 / 2549.49 829 / 829 Lab / Micro Data 02/25/24 05:50 02/25/24 05:50 Labs: Laboratory Results - last 24 hr 02/25/24 05:50: WBC 11.3 H, RBC 3.98 L, Hgb 11.4 L, Hct 36.4 L, MCV 91.5, MCH 28.6, MCHC 31.3 L, RDW Std Deviation 46.6 H, RDW Coeff of Nilda 13.7, Plt Count 221, MPV 9.8, Immature Gran % (Auto) 0.400, Neut % (Auto) 81.1 H, Lymph % (Auto) 8.4 L, [place] % (Auto) 7.5, Eos % (Auto) 2.3, Baso % (Auto) 0.3, Absolute Neuts (auto) 9.2 H, Absolute Lymphs (auto) 0.95, Nucleated RBC % 0, Sodium 142, Potassium 4.2, Chloride 112 H, Carbon Dioxide 23.0, Anion Gap 7, BUN 14, Creatinine 1.16, Estim Creat Clear Calc 110.82, Est GFR (MDRD) Af Amer 88, Est GFR (MDRD) Non-Af 73, BUN/Creatinine Ratio 12.1, Glucose 112 H, Calcium 8.5 Physical Exam Const oriented x3 and no apparent distress Resp normal respiratory effort GI soft to palpation Inspection: Negative for abdominal distention Assessment & Plan Assessment/Plan (1) Acute appendicitis: QUALIFIERS: Acute appendicitis type: unspecified acute appendicitis type Qualified Code(s): K35.80 - Unspecified acute appendicitis PLAN: Patient's white count is decreasing but still elevated. Still awaiting bowel function. Encouraged ambulation and incentive spirometer. I will start the patient on subcutaneous heparin. Await bowel function to start a diet. Continue antibiotics. SAMY is serosanguineous and the incision is clean dry and intact with no sign of infection. Continue Flomax. Continue Faith for today. Will try voiding trial tomorrow. Yusef Parks MD Pager: [facility] [address] [place] [address], [address] [place] [address] Office:
[2024-02-25] MEDS: Heparin Injection (Vial) 5,000 UNIT/ML VIAL 5000 UNIT SC ×3 (10:56→21:52)
[2024-02-25 11:00] VITALS: BP 121/77; PULSE 88; RESP 18; TEMP 37.1; O2SAT 98
[2024-02-25 16:00] VITALS: BP 123/76; PULSE 86; RESP 16; TEMP 36.6; O2SAT 99
[2024-02-25] MEDS: Tamsulosin HCl 0.4 MG Capsule PO (16:12)
[2024-02-25 21:35] VITALS: BP 130/87; PULSE 87; RESP 15; TEMP 36.7; O2SAT 97
[2024-02-25] MEDS: Ondansetron 4 MG/2 ML Vial IV (21:50)
[2024-02-26 02:52] VITALS: BP 137/85; PULSE 88; RESP 15; TEMP 36.8; O2SAT 96
[2024-02-26] MEDS: 0.9% Normal Saline (1000mL) 1,000 ML 125 ML IV ×3 (04:59→21:38)
[2024-02-26] MEDS: Piperacil/Tazobactam 3.375 GM in 0.9% Normal Saline (50mL MB+) 50 ML IV ×3 (04:59→21:38)
[2024-02-26] MEDS: Heparin Injection (Vial) 5,000 UNIT/ML VIAL 5000 UNIT SC ×3 (05:00→21:41)
[2024-02-26 07:38] LABS: Absolute Lymphocyte Count 1.33 X10^3/uL (0.83-4.51); Absolute Neutrophil Count 6.2 X10^3/uL (2.0-7.7); Basophil# 0.02 X10^3/uL; Basophil% 0.2 % (0-1); Eosinophil# 0.29 X10^3/uL; Eosinophils% 3.4 % (0-5); Hemoglobin 11.3 g/dL (13.0-16.5); Lymphocyte # 1.33 X10^3/ul (0.83-4.51); Lymphocyte % 15.7 % (19-41); Mean Corp Hgb Conc 32.3 g/dL (32-36); Mean Corpuscular Hgb 29.5 pg (27.0-32.0); Mean Corpuscular Volume 91.4 fL (80-94); Mean Platelet Vol. 9.7 fl (6.2-12.0); Monocyte# 0.57 X10^3/uL; Monocyte% 6.7 % (0-10); NRBC Flagged by Analyzer 0 % (0-5); Neutrophil # 6.23 X10^3/uL (2.7-7.7); Neutrophil % 73.6 % (47-70); Platelet Count 272 K/mm3 (150-450); RBC Distribution Width CV 13.5 % (11.6-14.6); RBC Distribution Width SD 45.2 fl (35.1-43.9); Red Blood Count 3.83 M/mm3 (4.6-6.2); White Blood Count 8.5 K/mm3 (4.4-11.0)
[2024-02-26 08:00] LABS: Anion Gap 6 (5-15); BUN 12 mg/dL (7-18); BUN/Creat Ratio 12.1 RATIO (10-20); Calcium,Total 8.4 mg/dL (8.5-10.1); Chloride 111 mmol/L (98-107); Creatinine, Serum 0.99 mg/dL (0.70-1.30); EST Glomerular Filtration Rate 87 mL/min (>60); Est Glom Filt Rate - Afr Amer 106 mL/min (>60); Estimated Creatinine Clearance 129.85 ml/min; Glucose 102 mg/dL (74-106); Potassium 4.1 mmol/L (3.5-5.1); Sodium Level 139 mmol/L (136-145)
--- NOTE | 2024-02-26 08:16 | RAD_ITS ---
STUDY: X-RAY - ABDOMEN/PELVIS REASON FOR EXAM: Male, 44 years old. Distention TECHNIQUE: Single AP view of the abdomen / pelvis. COMPARISON: None. FINDINGS: Midline incision. Gaseous distention of the small bowel loops and the colon. This is suggestive of ileus gas pattern. The visualized liver, spleen and kidneys are grossly normal in size and morphology. Normal soft tissue structures. Normal visualized osseous structures. RAD/Abdomen Single View (Portable) IMPRESSION: Findings suggestive of an ileus gas pattern. Electronically Signed: Ellis Ovalle MD at 12:31 EDT ,
--- NOTE | 2024-02-26 08:50 | PN.SURG_ITS ---
Subjective Subjective Patient reports he is not passing any gas and is feeling a lot of pressure and he is Having a lot of belching and bloating. Objective Data Objective Data Vital Signs: Vital Signs Temp Pulse Resp BP Pulse Ox O2 Del Method O2 Flow Rate 98.3 F 88 15 137/85 H 96 Room Air 2 02/26/24 02:52 02/26/24 02:52 02/26/24 02:52 02/26/24 02:52 02/26/24 02:52 02/26/24 04:00 02/24/24 06:28 Oxygen Flow Rate (L/min) 2 Oxygen Delivery Method Room Air Weight: 276 lb 14.4 oz Body Mass Index (BMI) 38.6 Intake & Output: Intake and Output for Last 24 Hours 02/24/24 02/25/24 02/26/24 23:59 23:59 23:59 Intake Total 3949.49 / 3949.49 3062.33 / 3062.33 1050 / 1050 Output Total 1400 / 1400 995 / 995 500 / 500 Balance 2549.49 / 2549.49 2067.33 / 2067.33 550 / 550 Lab / Micro Data 02/26/24 06:44 02/26/24 06:44 Labs: Laboratory Results - last 24 hr 02/26/24 06:44: WBC 8.5, RBC 3.83 L, Hgb 11.3 L, Hct 35.0 L, MCV 91.4, MCH 29.5, MCHC 32.3, RDW Std Deviation 45.2 H, RDW Coeff of Nilda 13.5, Plt Count 272, MPV 9.7, Immature Gran % (Auto) 0.400, Neut % (Auto) 73.6 H, Lymph % (Auto) 15.7 L, [place] % (Auto) 6.7, Eos % (Auto) 3.4, Baso % (Auto) 0.2, Absolute Neuts (auto) 6.2, Absolute Lymphs (auto) 1.33, Nucleated RBC % 0, Sodium 139, Potassium 4.1, Chloride 111 H, Carbon Dioxide 22.0, Anion Gap 6, BUN 12, Creatinine 0.99, Estim Creat Clear Calc 129.85, Est GFR (MDRD) Af Amer 106, Est GFR (MDRD) Non-Af 87, BUN/Creatinine Ratio 12.1, Glucose 102, Calcium 8.4 L Physical Exam Const oriented x3 and no apparent distress Resp normal respiratory effort GI soft to palpation Inspection: abdominal distention Palpation: tender Assessment & Plan Assessment/Plan (1) Acute appendicitis: QUALIFIERS: Acute appendicitis type: unspecified acute appendicitis type Qualified Code(s): K35.80 - Unspecified acute appendicitis PLAN: The patient reports he is not passing gas but he feels a lot of pressure in his abdomen. He has not had any vomiting but he is belching a lot. He said he had 2 liquid bowel movements but no gas with them. I am ordering a KUB to check for postoperative ileus. White count is returning to normal and SAMY is serosanguineous. Abdomen is very distended. Incision is clean dry and intact with no erythema. I will continue Faith today as the patient had urinary retention and he seems to be developing ileus. Hopefully remove Faith tomorrow if the ileus is improving. Yusef Parks MD Pager: [facility] [address] [place] [address] [address] [place] [address] Office:
[2024-02-26 09:00] VITALS: BP 144/89; PULSE 87; RESP 16; TEMP 37; O2SAT 94
[2024-02-26] MEDS: 0.9% Saline Lock 10 ML Syringe IV ×2 (10:12→18:09)
[2024-02-26] MEDS: Ketorolac 15 MG/ML Vial IV ×2 (10:12→18:09)
[2024-02-26 15:00] VITALS: BP 134/66; PULSE 77; RESP 18; TEMP 36.7; O2SAT 100
[2024-02-26] MEDS: Ondansetron 4 MG/2 ML Vial IV (15:28)
--- NOTE | 2024-02-26 16:08 | CASEMGMT ---
RN CM into pt room, pt sitting up in chair. Pt states numbness and tingling in hand/arm is resolved. Pt verbalized will be going home with SAMY drain and will need education on how to care for drain. Informed pt nurse will review before DC and provide DC instructions about how to care for drain and to ask for CM if still has questions after education. Pt verbalized understanding. Denies any other DC needs at this time.
[2024-02-26] MEDS: Tamsulosin HCl 0.4 MG Capsule PO (18:09)
[2024-02-26 21:32] VITALS: BP 146/88; PULSE 86; RESP 18; TEMP 36.8; O2SAT 98
[2024-02-26] MEDS: Pantoprazole Sodium 20 MG Tablet PO (21:38)
[2024-02-27] MEDS: Acetaminophen 325 MG Tablet 650 MG PO (00:27)
[2024-02-27 05:25] VITALS: BP 136/82; PULSE 82; RESP 18; TEMP 36.9; O2SAT 97
[2024-02-27] MEDS: 0.9% Normal Saline (1000mL) 1,000 ML 125 ML IV (05:26)
[2024-02-27] MEDS: Piperacil/Tazobactam 3.375 GM in 0.9% Normal Saline (50mL MB+) 50 ML IV ×3 (05:26→22:52)
[2024-02-27] MEDS: Heparin Injection (Vial) 5,000 UNIT/ML VIAL 5000 UNIT SC ×3 (05:33→22:49)
[2024-02-27] MEDS: Ketorolac 15 MG/ML Vial IV ×3 (05:37→22:48)
[2024-02-27] MEDS: 0.9% Saline Lock 10 ML Syringe IV ×2 (05:37→16:41)
--- NOTE | 2024-02-27 07:29 | PCM.PN.SRG ---
Subjective Subjective Patient seen and examined during AM rounds. He is found resting out of bed in a chair. He states that he is frequently ambulating (already 9 laps this morning). He also shares that he is feeling better and having less nausea but he does describe some reflux which is not normal for him. He continues to have some loose stools and increasingly regular flatus. Objective Data Objective Data Vital Signs: Vital Signs Temp Pulse Resp BP Pulse Ox O2 Del Method O2 Flow Rate 98.5 F 82 18 136/82 H 97 Room Air 2 02/27/24 05:25 02/27/24 05:25 02/27/24 05:25 02/27/24 05:25 02/27/24 05:25 02/27/24 05:44 02/24/24 06:28 Oxygen Flow Rate (L/min) 2 Oxygen Delivery Method Room Air Weight: 276 lb 14.4 oz Body Mass Index (BMI) 38.6 Intake & Output: Intake and Output for Last 24 Hours 02/25/24 02/26/24 02/27/24 23:59 23:59 23:59 Intake Total 3062.33 / 3062.33 3368.75 / 3368.75 1025 / 1025 Output Total 995 / 995 2540 / 2540 710 / 710 Balance 2067.33 / 2067.33 828.75 / 828.75 315 / 315 Lab / Micro Data 02/27/24 07:52 02/27/24 07:52 Labs: Laboratory Results - last 24 hr 02/26/24 06:44: WBC 8.5, RBC 3.83 L, Hgb 11.3 L, Hct 35.0 L, MCV 91.4, MCH 29.5, MCHC 32.3, RDW Std Deviation 45.2 H, RDW Coeff of Nilda 13.5, Plt Count 272, MPV 9.7, Immature Gran % (Auto) 0.400, Neut % (Auto) 73.6 H, Lymph % (Auto) 15.7 L, [place] % (Auto) 6.7, Eos % (Auto) 3.4, Baso % (Auto) 0.2, Absolute Neuts (auto) 6.2, Absolute Lymphs (auto) 1.33, Nucleated RBC % 0, Sodium 139, Potassium 4.1, Chloride 111 H, Carbon Dioxide 22.0, Anion Gap 6, BUN 12, Creatinine 0.99, Estim Creat Clear Calc 129.85, Est GFR (MDRD) Af Amer 106, Est GFR (MDRD) Non-Af 87, BUN/Creatinine Ratio 12.1, Glucose 102, Calcium 8.4 L Radiography Diagnostic Testing: Radiology Impression KUB X-Ray 02/26/24 08:16 IMPRESSION: Findings suggestive of an ileus gas pattern. Electronically Signed: Ellis Ovalle MD at 12:31 EDT , Physical Exam Const oriented x3 and no apparent distress Resp normal respiratory effort GI GI Narrative: Distended, operative incisions remain well-approximated without erythema or drainage, soft, nontender. Drain with serous output. Assessment & Plan Assessment/Plan (1) Acute appendicitis: QUALIFIERS: Acute appendicitis type: unspecified acute appendicitis type Qualified Code(s): K35.80 - Unspecified acute appendicitis PLAN: Patient is a 44-year-old male postoperative day 4 from lap converted to open ileocecectomy given diagnosis of perforated appendicitis. He is currently experiencing a postoperative ileus that appears to be resolving, however. He describes ongoing bowel function with liquid bowel movements and more regular flatus. Yet he still complains of some new reflux and minimal appetite. Thus I believe he still needs a little more time before we reinitiated diet. Faith catheter remains in place due to urinary retention hopefully we can discontinue this after his ileus is more reliably resolved as well. Fabio Benitez MD General Surgery Endocrine Surgery Pager: [facility] [address] [place] [address], Outpatient [place], [address] [place] [address] Office: [phone] Charges/Coding Visit Charges Inpatient E&M: 77298 Subs Hosp L2
[2024-02-27 08:06] LABS: Absolute Neutrophil Count 3.8 X10^3/uL (2.0-7.7); Basophil# 0.01 X10^3/uL; Basophil% 0.2 % (0-1); Eosinophil# 0.28 X10^3/uL; Eosinophils% 4.5 % (0-5); Hematocrit 35.1 % (40-54); Hemoglobin 11.2 g/dL (13.0-16.5); Lymphocyte % 22.6 % (19-41); Mean Corp Hgb Conc 31.9 g/dL (32-36); Mean Corpuscular Volume 90.9 fL (80-94); Mean Platelet Vol. 9.1 fl (6.2-12.0); Monocyte# 0.66 X10^3/uL; Monocyte% 10.6 % (0-10); NRBC Flagged by Analyzer 0 % (0-5); Neutrophil # 3.83 X10^3/uL (2.7-7.7); Neutrophil % 61.8 % (47-70); Platelet Count 306 K/mm3 (150-450); RBC Distribution Width CV 13.3 % (11.6-14.6); RBC Distribution Width SD 43.9 fl (35.1-43.9); Red Blood Count 3.86 M/mm3 (4.6-6.2); White Blood Count 6.2 K/mm3 (4.4-11.0)
[2024-02-27 08:34] LABS: Anion Gap 3 (5-15); BUN 14 mg/dL (7-18); BUN/Creat Ratio 13.5 RATIO (10-20); Calcium,Total 8.5 mg/dL (8.5-10.1); Chloride 115 mmol/L (98-107); Creatinine, Serum 1.04 mg/dL (0.70-1.30); EST Glomerular Filtration Rate 83 mL/min (>60); Est Glom Filt Rate - Afr Amer 100 mL/min (>60); Estimated Creatinine Clearance 123.61 ml/min; Glucose 100 mg/dL (74-106); Phosphorus 2.4 mg/dL (2.5-4.9); Potassium 4.2 mmol/L (3.5-5.1); Sodium Level 140 mmol/L (136-145)
[2024-02-27] MEDS: Pantoprazole Sodium 20 MG Tablet PO (09:45)
[2024-02-27 10:00] VITALS: BP 140/84; PULSE 78; RESP 18; TEMP 36.8; O2SAT 98
[2024-02-27 11:00] VITALS: RESP 18
[2024-02-27] MEDS: 0.9% Normal Saline (1000mL) 1,000 ML 100 ML IV (13:40)
[2024-02-27] MEDS: Tamsulosin HCl 0.4 MG Capsule PO (16:41)
[2024-02-27 17:00] VITALS: BP 151/93; PULSE 77; RESP 18; TEMP 37.2; O2SAT 98
[2024-02-27 22:00] VITALS: BP 142/77; PULSE 81; RESP 15; TEMP 36.7; O2SAT 97
[2024-02-28] VITALS (7 sets, daily range): BP systolic 121–142; BP diastolic 70–85; PULSE 65–77; RESP 15–18; TEMP 36.2–36.7; O2SAT 97–100
[2024-02-28] MEDS: 0.9% Normal Saline (1000mL) 1,000 ML 100 ML IV ×2 (00:44→11:30)
[2024-02-28] MEDS: Piperacil/Tazobactam 3.375 GM in 0.9% Normal Saline (50mL MB+) 50 ML IV ×3 (06:16→21:29)
[2024-02-28] MEDS: Heparin Injection (Vial) 5,000 UNIT/ML VIAL 5000 UNIT SC ×3 (06:17→21:29)
[2024-02-28] MEDS: 0.9% Normal Saline (250mL Bag) 250 ML 15 ML IV (06:25)
[2024-02-28] MEDS: Ketorolac 15 MG/ML Vial IV (06:25)
[2024-02-28 06:30] LABS: Absolute Lymphocyte Count 1.32 X10^3/uL (0.83-4.51); Absolute Neutrophil Count 4.1 X10^3/uL (2.0-7.7); Basophil# 0.02 X10^3/uL; Basophil% 0.3 % (0-1); Eosinophils% 4.7 % (0-5); Hemoglobin 10.9 g/dL (13.0-16.5); Lymphocyte # 1.32 X10^3/ul (0.83-4.51); Lymphocyte % 20.5 % (19-41); Mean Corp Hgb Conc 32.1 g/dL (32-36); Mean Corpuscular Hgb 29.2 pg (27.0-32.0); Mean Corpuscular Volume 91.2 fL (80-94); Mean Platelet Vol. 9.4 fl (6.2-12.0); Monocyte# 0.63 X10^3/uL; Monocyte% 9.8 % (0-10); NRBC Flagged by Analyzer 0 % (0-5); Neutrophil # 4.13 X10^3/uL (2.7-7.7); Neutrophil % 64.2 % (47-70); Platelet Count 317 K/mm3 (150-450); RBC Distribution Width CV 13.2 % (11.6-14.6); RBC Distribution Width SD 43.7 fl (35.1-43.9); Red Blood Count 3.73 M/mm3 (4.6-6.2); White Blood Count 6.4 K/mm3 (4.4-11.0)
[2024-02-28 06:57] LABS: Anion Gap 6 (5-15); BUN 12 mg/dL (7-18); BUN/Creat Ratio 14.2 RATIO (10-20); Calcium,Total 8.3 mg/dL (8.5-10.1); Chloride 113 mmol/L (98-107); Creatinine, Serum 0.84 mg/dL (0.70-1.30); EST Glomerular Filtration Rate 106 mL/min (>60); Est Glom Filt Rate - Afr Amer 128 mL/min (>60); Estimated Creatinine Clearance 153.04 ml/min; Glucose 88 mg/dL (74-106); Magnesium 1.9 mg/dL (1.6-2.6); Phosphorus 3.4 mg/dL (2.5-4.9); Sodium Level 140 mmol/L (136-145)
--- NOTE | 2024-02-28 09:26 | PN.SURG_ITS ---
Subjective Subjective Patient seen and examined during AM rounds. He is found resting in bed but upon my arrival to the room immediately exclaims that he is ready for schumacher and eggs. He denies any return of his reflux symptoms and confirms that he has had more regular flatus and ongoing loose bowels. Objective Data Objective Data Vital Signs: Vital Signs Temp Pulse Resp BP Pulse Ox O2 Del Method O2 Flow Rate 98.1 F 66 18 126/76 H 97 Room Air 2 02/28/24 08:09 02/28/24 08:09 02/28/24 08:10 02/28/24 08:09 02/28/24 08:09 02/28/24 08:10 02/24/24 06:28 Oxygen Flow Rate (L/min) 2 Oxygen Delivery Method Room Air Weight: 276 lb 14.4 oz Body Mass Index (BMI) 38.6 Intake & Output: Intake and Output for Last 24 Hours 02/26/24 02/27/24 02/28/24 23:59 23:59 23:59 Intake Total 3368.75 / 3368.75 3725 / 3725 50 / 50 Output Total 2540 / 2540 1989 / 1989 640 / 640 Balance 828.75 / 828.75 1735 / 1735 -590 / -590 Lab / Micro Data 02/28/24 05:40 02/28/24 05:40 Labs: Laboratory Results - last 24 hr 02/28/24 05:40: WBC 6.4, RBC 3.73 L, Hgb 10.9 L, Hct 34.0 L, MCV 91.2, MCH 29.2, MCHC 32.1, RDW Std Deviation 43.7, RDW Coeff of Nilda 13.2, Plt Count 317, MPV 9.4, Immature Gran % (Auto) 0.500, Neut % (Auto) 64.2, Lymph % (Auto) 20.5, [place] % (Auto) 9.8, Eos % (Auto) 4.7, Baso % (Auto) 0.3, Absolute Neuts (auto) 4.1, Absolute Lymphs (auto) 1.32, Nucleated RBC % 0, Sodium 140, Potassium 4.0, C hloride 113 H, Carbon Dioxide 21.0, Anion Gap 6, BUN 12, Creatinine 0.84, Estim Creat Clear Calc 153.04, Est GFR (MDRD) Af Amer 128, Est GFR (MDRD) Non-Af 106, BUN/Creatinine Ratio 14.2, Glucose 88, Calcium 8.3 L, Phosphorus 3.4, Magnesium 1.9 Physical Exam Const oriented x3 and no apparent distress Resp normal respiratory effort GI GI Narrative: Mild abdominal distention persists, operative incisions remain intact and are nonerythematous and nondraining. Nontender with palpation. Patient's lower abdominal drain with serous output. Bladder / Kidney Exam: catheter in place Assessment & Plan Assessment/Plan (1) Acute appendicitis: QUALIFIERS: Acute appendicitis type: unspecified acute appendicitis type Qualified Code(s): K35.80 - Unspecified acute appendicitis PLAN: Patient is a 44-year-old male postoperative day 5 from lap converted to open ileocecectomy given diagnosis of perforated appendicitis. He appears to have more convincing evidence of resolving ileus with ongoing bowel function and return of his appetite/dissipation of his reflux complaints. With these clinical improvements I will plan to advance his diet today and monitor for tolerance. Faith catheter to be removed this morning in follow-up for spontaneous void. Dispo: Will reevaluate this afternoon but possible discharge to home anticipated tomorrow Fabio Benitez MD General Surgery Endocrine Surgery Pager: [facility] [address] [place] [address], [facility], [address] [place] [address] Office: [phone] Charges/Coding Visit Charges Inpatient E&M: 47265 Subs Hosp L2
[2024-02-28] MEDS: Pantoprazole Sodium 20 MG Tablet PO (11:30)
[2024-02-28] MEDS: Tamsulosin HCl 0.4 MG Capsule PO (16:56)
[2024-02-28] MEDS: Acetaminophen 325 MG Tablet 650 MG PO ×2 (16:56→21:29)
[2024-02-29] MEDS: Heparin Injection (Vial) 5,000 UNIT/ML VIAL 5000 UNIT SC (04:55)
[2024-02-29] MEDS: Piperacil/Tazobactam 3.375 GM in 0.9% Normal Saline (50mL MB+) 50 ML IV (04:59)
[2024-02-29 05:00] VITALS: BP 128/84; PULSE 60; RESP 16; TEMP 36.6; O2SAT 99
[2024-02-29] MEDS: Acetaminophen 325 MG Tablet 650 MG PO (07:45)
[2024-02-29] MEDS: Pantoprazole Sodium 20 MG Tablet PO (07:45)
--- NOTE | 2024-02-29 07:55 | PCM.PN.SRG ---
Subjective Subjective Patient reports he is much more comfortable and he is urinating and passing gas and having bowel movements. Denies nausea or vomiting. He is tolerating regular diet. Objective Data Objective Data Vital Signs: Vital Signs Temp Pulse Resp BP Pulse Ox O2 Del Method O2 Flow Rate 97.8 F 60 16 128/84 H 99 Room Air 2 02/29/24 05:00 02/29/24 05:00 02/29/24 05:00 02/29/24 05:00 02/29/24 05:00 02/29/24 05:00 02/24/24 06:28 Oxygen Flow Rate (L/min) 2 Oxygen Delivery Method Room Air Weight: 276 lb 14.4 oz Body Mass Index (BMI) 38.6 Intake & Output: Intake and Output for Last 24 Hours 02/27/24 02/28/24 02/29/24 23:59 23:59 23:59 Intake Total 3725 / 3725 4050 / 4050 1487 / 1487 Output Total 1989 1210 / 1210 Balance 1735 / 1735 2840 / 2840 1487 / 1487 Lab / Micro Data 02/28/24 05:40 02/28/24 05:40 Physical Exam Const oriented x3 and no apparent distress Resp normal respiratory effort Cardio regular rate and regular rhythm GI soft to palpation and non-tender Extremity normal to inspection Assessment & Plan Assessment/Plan (1) Acute appendicitis: QUALIFIERS: Acute appendicitis type: unspecified acute appendicitis type Qualified Code(s): K35.80 - Unspecified acute appendicitis (2) Postoperative ileus: PLAN: Plan The patient is doing better today. He is tolerating diet and I will DC his drain and send him home today. I will see him back next week to remove his kunal. I will discharge him on oral antibiotics. Yusef Parks MD Pager: [facility] [address] [place] [address], [address] [place] [address] Office:
--- NOTE | 2024-02-29 07:58 | PCM.DC.SUM ---
Providers Date of Admission: 02/23/24 Primary Care Physician: Dr. Dick Winters MD Reason For Visit: ACUTE APPENDICITIS Diagnosis Discharge Diagnosis (1) Acute appendicitis: Status: Acute Code(s): K35.80 - Unspecified acute appendicitis Qualifiers: Acute appendicitis type: unspecified acute appendicitis type Qualified Code(s): K35.80 - Unspecified acute appendicitis (2) Postoperative ileus: Status: Acute Code(s): K91.89 - Other postprocedural complications and disorders of digestive system; K56.7 - Ileus, unspecified Plan The patient is doing better today. He is tolerating diet and I will DC his drain and send him home today. I will see him back next week to remove his kunal. I will discharge him on oral antibiotics. Yusef Parks MD Pager: [facility] [address] [place] [address], [address] [place] [address] Office: Medications at Discharge Home Medications cetirizine 10 mg tablet (24Hour Allergy) 10 mg PO DAILY PRN allergy symptoms 02/23/24 acetaminophen 325 mg tablet 650 mg (2 x 325 mg) PO Q4H PRN PRN Pain 1-10 Or Fever #0 tabs 02/29/24 amoxicillin 500 mg-potassium clavulanate 125 mg tablet (Augmentin) 1 tab PO BID #14 tabs 02/29/24 tamsulosin 0.4 mg capsule 0.4 mg PO QHS 14 days #14 caps 02/29/24 Hospital Course Operations appendectomy Procedures None Summary of Care Provided Hospital Course: The patient was admitted with appendicitis. He was taken for surgery but unfortunately the base of his appendix was perforated. He had to undergo ileocecectomy. The patient had drain placed and was admitted to the floor and kept on IV antibiotics. He denied urinary retention for which Faith catheter had to be placed. After a few more days he started passing gas and having bowel movements and tolerating diet Faith was removed he is urinating normally. Weight / BMI Weight Weight: 276 lb 14.4 oz Body Mass Index (BMI) 38.6 ABG / Lab / Microbiology Data 02/28/24 05:40 02/28/24 05:40 D/C Instructions Discharge Diet: Light diet - advance as tolerated Discharge Activity: May Drive and May Shower Lifting Restrictions: 15 pounds for 6 weeks Call your doctor if your incision/area has: Continuous Slow Oozing, Sudden Increased Bleeding, Increased Pain/ Swelling, Increased Redness, Foul Smelling Discharge and Swelling at the incision site Call your doctor if you observe: Fever of 101 or Higher Cleanse incision/area with: Soap & Water Please Follow Up With: Yusef Parks MD When: Please call to schedule follow up appointment for later this week. [phone] Meaningful Use Info Meaningful Use Meaningful Use Diagnoses (Choose all that apply): None applicable Ischemic Stroke Statin Dosing Therapy Reference: STATIN DOSE THERAPY REFERENCE: * Patients > 75 years receive moderate or high dose statin therapy. * Patients 75 years or YOUNGER should receive HIGH intensity statin dose unless contraindicated. You will be required to document reason for non-treatment if statin daily dose does not meet guidelines. HIGH DOSE STATIN THERAPY DAILY Atorvastatin > than or = to 40 mg Rosuvastatin > than or = to 20 mg Amlodipine + Atorvastatin > than or = to 2.5/40 mg Ezetimibe + Simvastatin 10/80 mg Simvastatin 80mg Discharge Plan Admission Admit Date/Time: 02/23/24 18:22 Attending Provider: Yusef Parks Primary Care Provider: Dick Winters Discharge Orders/Prescriptions Prescriptions: New acetaminophen 325 mg Tablet 650 mg PO Q4H PRN PRN (Reason: Pain 1-10 Or Fever) Qty: 0 0RF tamsulosin 0.4 mg Capsule 0.4 mg PO QHS 14 Days Qty: 14 0RF amoxicillin-pot clavulanate [Augmentin] 500-125 mg tablet 1 tab PO BID Qty: 14 0RF Continued cetirizine [24Hour Allergy] 10 mg tablet 10 mg PO DAILY PRN (Reason: allergy symptoms) Referrals / Follow Up: Dick Winters MD [Primary Care Provider] - Disposition Disposition (needs filled in before D/C Order can be placed): Home, Self Care
[2024-02-29 07:59] VITALS: BP 129/86; PULSE 68; RESP 16; TEMP 36.9; O2SAT 99
--- NOTE | 2024-02-29 10:21 | PHA.DC.MC.R ---
Pharmacy [facility] has performed discharge medication reconciliation and counseling for this patient. 1. AUGMENTIN 500MG PO BID X 7 DAYS 2. TAMSULOSIN 0.4MG PO QHS X 14 DAYS The patient's discharge medication list was reviewed for discrepancies and discrepancies were resolved. The patient was counseled on the following discharge medications and changes in medications for homegoing were reviewed. The Reason for Use, instructions for use, and potential side effects were reviewed for all new medications. The patient's questions regarding all of their medications were answered. The patient was able to verbally demonstrate an understanding of their discharge medications. Patient counseled by manager clinical pharmacyNora. Medications at Discharge Home Medications cetirizine 10 mg tablet (24Hour Allergy) 10 mg PO DAILY PRN allergy symptoms 02/23/24 acetaminophen 325 mg tablet 650 mg (2 x 325 mg) PO Q4H PRN PRN Pain 1-10 Or Fever #0 tabs 02/29/24 amoxicillin 500 mg-potassium clavulanate 125 mg tablet (Augmentin) 1 tab PO BID #14 tabs 02/29/24 tamsulosin 0.4 mg capsule 0.4 mg PO QHS 14 days #14 caps 02/29/24
== END 2024-02-29 09:55 | disposition home or self-care (01) | DRG 330 ==
LOC: ED 18:02 → SDC 18:30 → ED 19:48 → MS3 02-24 08:44 → SDC 02-26 10:08 → ED 02-26 10:08 → MS3 02-26 10:09
PROVIDERS: Surgery; Admitting Provider Surgery; Emergency Provider Emergency Medicine; PCP Family Medicine; Referring Provider Surgery; Visit Provider Surgery
PROC: 0DTJ4ZZ Resection of Appendix, Percutaneous Endoscopic Approach (ICD-10-PCS; CPT 44970; principal; 2024-02-23 19:00)
DX: K35.32 Acute appendicitis with perforation, localized peritonitis, and gangrene, without abscess (principal); K56.7 Ileus, unspecified; K91.89 Other postprocedural complications and disorders of digestive system; F17.290 Nicotine dependence, other tobacco product, uncomplicated; Y83.6 Removal of other organ (partial) (total) as the cause of abnormal reaction of the patient, or of later complication, without mention of misadventure at the time of the procedure; R33.9 Retention of urine, unspecified; Z53.31 Laparoscopic surgical procedure converted to open procedure; Z79.899 Other long term (current) drug therapy
CPT/HCPCS: 36415; 74018; 74177; 80048; 80053; 81001; 83605; 83735; 84100; 85025; 88302; 88307; 93005; 94668; 97110; 97165; 97166; 97530; 99285; 99406; J7030; J7050; J7120; Q9967; A4216; C1760; J2405

== ENCOUNTER → 2024-07-01 | Outpatient (CLI) | payer OTHER, SELFPAY ==
--- OUTSIDE RECORDS SUMMARY | 2024-07-01 07:08 | XMS RPT_ITS | CCD ---
Author Organization [facility] Care Team Providers Care Transitional Care Nurse Name Role Phone Unavailable Primary Care Provider Unavailabl e Medications Current Medications Medication Drug Class(es) Dates Sig (Normalized) Sig (Original) Cetirizine (1 source) Histamine-1 Receptor Antagonist cetirizine HCl (ZYRT EC ORAL) Take by mouth. 0 Active Completed/Discontinued Medications Medication Drug Class(es) Dates Sig (Normalized) Sig (Original) penicillin v potassium 500 mg oral tablet (1 source) Start: 10-19-2010 take 1 tablet by mouth three times daily penicillin V potassium 500 mg ORAL tablet Indications: Sore throat , Strep pharyngitis Take one(1) tablet three times daily: complete all doses 30 Tab 0 10/19/2010 Active Problems Active Problems Problem Classification Problem Date Documented Da te Episodic/Chronic Abdominal pain (1 source) Lower abdominal pain; Translations: [Lower abdominal pain, unspecified] 02-23-2024 Episodic Other congenital anomalies (1 source) Congenital pes planus; Translations: [Congenital pes planus, unspecified foot] Onset: 05-28-2009 05-28-2009 Chronic Past or Other Problems Problem Classification Problem Date Documented Da te Episodic/Chronic Contraceptive and procreative management (1 source) Patient encounter status; Translations: [Encounter for sterilization] Onset: 05-31-2009 05-31-2009 Episodic Other connective tissue disease (1 source) Pain in limb; Translations: [Pain in unspecified limb] Onset: 05-28-2009 05-28-2009 Episodic Other male genital disorders (1 source) Disorder of male genital organ; Translations: [Hydrocele, unspecified] Onset: 06-22-2009 06-22-2009 Episodic Sprains and strains (1 source) Sprain of ankle; Translations: [Sprain of unspecified ligament of unspecified ankle, initial encounter] Onset: 05-31-2009 05-31-2009 Episodic Results Test Name Value Interpretation Reference Range Pako Altman 02-23-2024 CNOV Office Visit ([facility] ) KEI COSTELLO ([id number]) 1980 M Date Time Provider Department 02/23/24 5:00 PM MARY MULLIGAN [facility] During your visit today, we recorded the following information about you: Temperature Pulse Respiration Blood pressure 101 degrees 112/minute 16/minute 156/88 Weight 125.7 kg Mary Mulligan APRN.APPLIQUER ZIGZAG 02/23/2024 5:11 PM Signed This note was created using NoteWriter. Subjective Kei Costello is a 44 year old male. 44 year old male with PMH presents for illness. Acute onset Thursday night +abdominal pain +fatigue Sleeping more than normal +fever States that he has seen decreased bowel movements He states he is feeling worse today since Thursday States that his stomach pain is worsening. Denies prior history of same The history is provided by the patient. No ore tester was used. Abdominal Pain This is a new problem. The current episode started 2 days ago. The problem occurs constantly. The problem has been gradually worsening. The pain is associated with an unknown factor. The pain is located in the RLQ and LLQ. The quality of the pain is cramping, aching and sharp. The pain is at a severity of 7/10. The pain is moderate. Associated symptoms include fever. Pertinent negatives include anorexia, flatus, melena, nausea, vomiting, hematuria, headaches and arthralgias. Nothing aggravates the symptoms. Nothing relieves the symptoms. Past workup does not include GI consult, CT scan, ultrasound, surgery or barium enema. His past medical history does not include PUD, gallstones, GERD, ulcerative colitis, Crohn's disease or irritable bowel syndrome. PAST MEDICAL HISTORY Diagnosis Date NEGATIVE MEDICAL HISTORY PAST SURGICAL HISTORY Procedure Laterality Date NONE ALLERGIES Patient has no known allergies. MEDICATIONS cetirizine HCl (ZYRTEC ORAL) Take by mouth. penicillin V potassium 500 mg ORAL tablet Take one(1) tablet three times daily: complete all doses (Patient not taking: Reported on 02/23/2024) FAMILY HISTORY Problem Relation Age of Onset Diabetes Mother Diabetes Maternal Grandmother Prostate Cancer Father Breast Cancer Paternal Grandmother Social History Tobacco Use Smoking status: Every Day Packs/day: 0.50 Years: 12.00 Additional pack years: 0.00 Total pack years: 6.00 Types: Cigarettes Last attempt to quit: 06/04/2009 Years since quittin.7 Smokeless tobacco: Never Substance Use Topics Alcohol use: Yes Comment: 6-7 drinks twice monthly Drug use: No Review of Systems Constitutional: Positive for fever. Eyes: Negative for photophobia, pain, discharge, redness and itching. Respiratory: Negative for apnea, cough, choking and chest tightness. Cardiovascular: Negative for chest pain, palpitations and leg swelling. Gastrointestinal: Positive for abdominal pain. Negative for anorexia, flatus, melena, nausea and vomiting. Genitourinary: Negative for hematuria. Musculoskeletal: Negative for arthralgias. Skin: Negative for color change, pallor, rash and wound. Allergic/Immunologic: Negative for environmental allergies, food allergies and immunocompromised state. Neurological: Negative for dizziness, facial asymmetry, light-headedness, numbness and headaches. Psychiatric/Behavioral : Negative for agitation and behavioral problems. Objective BP 156/88 Pulse 112 Temp (!) 38.3 ?C (101 ?F) (Tympanic) Resp 16 Wt 125.7 kg (277 lb 1.9 oz) SpO2 97% Physical Exam Vitals and nursing note reviewed. Constitutional: General: He is not in acute distress. Appearance: Normal appearance. He is obese. He is not ill-appearing, toxic-appearing or diaphoretic. Comments: Febrile HENT: Head: Normocephalic and atraumatic. Right Ear: External ear normal. Left Ear: External ear normal. Nose: Nose normal. Mouth/Throat: Mouth: Mucous membranes are moist. Pharynx: Oropharynx is clear. Cardiovascular: Rate and Rhythm: Regular rhythm. Pulses: Normal pulses. Heart sounds: Normal heart sounds. No murmur heard. No friction rub. No gallop. Pulmonary: Effort: Pulmonary effort is normal. No respiratory distress. Breath sounds: Normal breath sounds. No stridor. No wheezing, rhonchi or rales. Chest: Chest wall: No tenderness. Abdominal: General: There is distension. Tenderness: There is abdominal tenderness (right lower quadrant and left lower quadrant). Musculoskeletal: General: No swelling, tenderness, deformity or signs of injury. Normal range of motion. Cervical back: Normal range of motion and neck supple. No rigidity or tenderness. Right lower leg: No edema. Left lower leg: No edema. Lymphadenopathy: Cervical: No cervical adenopathy. Skin: General: Skin is warm and dry. Capillary Refill: Capillary refill takes less than 2 seconds. Coloration: Skin is not jaundiced or pale. Finding (more content not included)... Normal [facility] Vital Signs Date Time Vital Sign Value Performing Clinician Facility 02-23-2024 16:55-0400 Body temperature 100.99 [degF] Mary Mulligan UI DESIGNER.APPLIQUER ZIGZAG Work Phone: [facility] 02-23-2024 16:55-0400 Body weight 125.7 kg Mary Mulligan UI DESIGNER.APPLIQUER ZIGZAG Work Phone: [facility] 02-23-2024 16:55-0400 Diastolic blood pressure 88 mm[Hg] Mary Mulligan UI DESIGNER.APPLIQUER ZIGZAG Work Phone: [facility] 02-23-2024 16:55-0400 Heart rate 112 /min Mary Mulligan UI DESIGNER.APPLIQUER ZIGZAG Work Phone: [facility] 02-23-2024 16:55-0400 Respiratory rate 16 /min Mary Mulligan UI DESIGNER.APPLIQUER ZIGZAG Work Phone: [facility] 02-23-2024 16:55-0400 SaO2% (BldA) [Mass fraction] 97 % Mary Mulligan UI DESIGNER.APPLIQUER ZIGZAG Work Phone: [facility] 02-23-2024 16:55-0400 Systolic blood pressure 156 mm[Hg] Mary Mulligan UI DESIGNER.APPLIQUER ZIGZAG Work Phone: [facility] Encounters Encounter Date Encounter Type Care Provider Facility Start: 02-23-2024 End: 02-23-2024 ambulatory Facility:[facility] Start: 02-23-2024 End: 02-23-2024 Patient encounter procedure Mary Mulligan APRN.CNP Work Phone: [facility] Comment on above: Lower abdominal pain (Primary Dx) Plan of Treatment Date Care Activity Detail Author Start: 06-20-2026 Urine microalbumin profile DTa P,Tdap,Td Vaccine (2 - Td or Tdap) [facility] Start: 05-08-2024 Influenza vaccination Influenz a Vaccine (Season Ended) [facility] Start: 09-07-2023 Behavioral Health Screening Behavioral Health Screening [facility] Start: 05-08-2023 Covid-19 Vaccine ( season) Covid-19 Vaccine ( season) [facility] Start: 02-14-2016 Lipid panel Lipid Screening [facility] Start: 01-13-2012 Hepatitis B Vaccine (3 of 3 - 19+ 3-dose series) Hepatitis B Vaccine (3 of 3 - 19+ 3-dose series) [facility] Start: 1999 Hepatitis C screening Hepatitis C Sc reening [facility] Start: 1999 HIV screening HIV Screening [facility] Immunizations Immunization Date Immunization Notes Care Provider Fa cility 07-04-2022 influenza virus vacc ine, unspecified formulation Mary Mulligan APRN.CNP Work Phone: [facility] Payers Date Payer Category Payer Unknown MMO [employer] PPO [id number] 2023-Present [phone] [address] [place] [address] PPO [id number] 2023 Unknown [id number] Social History Date Type Detail Facility Start: 02-23-2024 Tobacco smoking stat us [facility] Smokes tobacco daily [facility] End: 06-04-2009 History of tobacco use Cigarette Smoker [facility] Start: 02-23-2024 Cigarettes smoked cu rrent (pack per day) - Reported 0.5 [facility] Start: 02-23-2024 Tobacco use and exposure Smoke less tobacco non-user [facility] Start: 02-23-2024 Alcohol intake Current drinke r of alcohol (finding) [facility] Start: 02-23-2024 Tobacco use panel [facility] Start: 1980 Sex Assigned At Not on file [facility] Progress note 02-23-2024 Note Date & Type Note Facility 02-23-2024 Note HNO ID: [id number] Author: MARY MULLIGAN APRN.APPLIQUER ZIGZAG Service: ? Author Type: Nurse Practitioner Type: Progress Notes Filed: 02/23/2024 17:11 Note Text: This note was created using Revuzeriter. Subjective Kei Costello is a 44 year old male. 44 year old male with PMH presents for illness. Acute onset Thursday night +abdominal pain +fatigue Sleeping more than normal +fever States that he has seen decreased bowel movements He states he is feeling worse today since Thursday States that his stomach pain is worsening. Denies prior history of same The history is provided by the patient. No ore tester was used. Abdominal Pain This is a new problem. The current episode started 2 days ago. The problem occurs constantly. The problem has been gradually worsening. The pain is associated with an unknown factor. The pain is located in the RLQ and LLQ. The quality of the pain is cramping, aching and sharp. The pain is at a severity of 7/10. The pain is moderate. Associated symptoms include fever. Pertinent negatives include anorexia, flatus, melena, nausea, vomiting, hematuria, headaches and arthralgias. Nothing aggravates the symptoms. Nothing relieves the symptoms. Past workup does not include GI consult, CT scan, ultrasound, surgery or barium enema. His past medical history does not include PUD, gallstones, GERD, ulcerative colitis, Crohn's disease or irritable bowel syndrome. PAST MEDICAL HISTORY Diagnosis Date NEGATIVE MEDICAL HISTORY PAST SURGICAL HISTORY Procedure Laterality Date NONE ALLERGIES Patient has no known allergies. MEDICATIONS cetirizine HCl (ZYRTEC ORAL) Take by mouth. penicillin V potassium 500 mg ORAL tablet Take one(1) tablet three times daily: complete all doses (Patient not taking: Reported on 02/23/2024) FAMILY HISTORY Problem Relation Age of Onset Diabetes Mother Diabetes Maternal Grandmother Prostate Cancer Father Breast Cancer Paternal Grandmother Social History Tobacco Use Smoking status: Every Day Packs/day: 0.50 Years: 12.00 Additional pack years: 0.00 Total pack years: 6.00 Types: Cigarettes Last attempt to quit: 06/04/2009 Years since quittin.7 Smokeless tobacco: Never Substance Use Topics Alcohol use: Yes Comment: 6-7 drinks twice monthly Drug use: No Review of Systems Constitutional: Positive for fever. Eyes: Negative for photophobia, pain, discharge, redness and itching. Respiratory: Negative for apnea, cough, choking and chest tightness. Cardiovascular: Negative for chest pain, palpitations and leg swelling. Gastrointestinal: Positive for abdominal pain. Negative for anorexia, flatus, melena, nausea and vomiting. Genitourinary: Negative for hematuria. Musculoskeletal: Negative for arthralgias. Skin: Negative for color change, pallor, rash and wound. Allergic/Immunologic: Negative for environmental allergies, food allergies and immunocompromised state. Neurological: Negative for dizziness, facial asymmetry, light-headedness, numbness and headaches. Psychiatric/Behavioral: Negative for agitation and behavioral problems. Objective BP 156/88 Pulse 112 Temp (!) 38.3 ?C (101 ?F) (Tympanic) Resp 16 Wt 125.7 kg (277 lb 1.9 oz) SpO2 97% Physical Exam Vitals and nursing note reviewed. Constitutional: General: He is not in acute distress. Appearance: Normal appearance. He is obese. He is not ill-appearing, toxic-appearing or diaphoretic. Comments: Febrile HENT: Head: Normocephalic and atraumatic. Right Ear: External ear normal. Left Ear: External ear normal. Nose: Nose normal. Mouth/Throat: Mouth: Mucous membranes are moist. Pharynx: Oropharynx is clear. Cardiovascular: Rate and Rhythm: Regular rhythm. Pulses: Normal pulses. Heart sounds: Normal heart sounds. No murmur heard. No friction rub. No gallop. Pulmonary: Effort: Pulmonary effort is normal. No respiratory distress. Breath sounds: Normal breath sounds. No stridor. No wheezing, rhonchi or rales. Chest: Chest wall: No tenderness. Abdominal: General: There is distension. Tenderness: There is abdominal tenderness (right lower quadrant and left lower quadrant). Musculoskeletal: General: No swelling, tenderness, deformity or signs of injury. Normal range of motion. Cervical back: Normal range of motion and neck supple. No rigidity or tenderness. Right lower leg: No edema. Left lower leg: No edema. Lymphadenopathy: Cervical: No cervical adenopathy. Skin: General: Skin is warm and dry. Capillary Refill: Capillary refill takes less than 2 seconds. Coloration: Skin is not jaundiced or pale. Findings: No bruising, lesion or rash. Neurological: General: No focal deficit present. Mental Status: He is alert and oriented to person, place, and time. Cranial Nerves: No cranial nerve deficit. Sensory: No sensory deficit. Motor: No weakness. Coordination: Coordination normal. Ga (more content not included)... [facility] History of Present illness Narrative 02-23-2024 Mary Mulligan APRN.APPLIQUER ZIGZAG - 02/23/2024 4:59 PM EDT Note Date & Type Note Facility 02-23-2024 History of Presen t illness Narrative This note was created using VILOOPter. Subjective Kei Costello is a 44 year old male. 44 year old male with PMH presents for illness. Acute onset Thursday night +abdominal pain +fatigue Sleeping more than normal +fever States that he has seen decreased bowel movements He states he is feeling worse today since Thursday States that his stomach pain is worsening. Denies prior history of same The history is provided by the patient. No ore tester was used. Abdominal Pain This is a new problem. The current episode started 2 days ago. The problem occurs constantly. The problem has been gradually worsening. The pain is associated with an unknown factor. The pain is located in the RLQ and LLQ. The quality of the pain is cramping, aching and sharp. The pain is at a severity of 7/10. The pain is moderate. Associated symptoms include fever. Pertinent negatives include anorexia, flatus, melena, nausea, vomiting, hematuria, headaches and arthralgias. Nothing aggravates the symptoms. Nothing relieves the symptoms. Past workup does not include GI consult, CT scan, ultrasound, surgery or barium enema. His past medical history does not include PUD, gallstones, GERD, ulcerative colitis, Crohn's disease or irritable bowel syndrome. PAST MEDICAL HISTORY Diagnosis Date NEGATIVE MEDICAL HISTORY PAST SURGICAL HISTORY Procedure Laterality Date NONE ALLERGIES Patient has no known allergies. MEDICATIONS cetirizine HCl (ZYRTEC ORAL) Take by mouth. penicillin V potassium 500 mg ORAL tablet Take one(1) tablet three times daily: complete all doses (Patient not taking: Reported on 02/23/2024) FAMILY HISTORY Problem Relation Age of Onset Diabetes Mother Diabetes Maternal Grandmother Prostate Cancer Father Breast Cancer Paternal Grandmother Social History Tobacco Use Smoking status: Every Day Packs/day: 0.50 Years: 12.00 Additional pack years: 0.00 Total pack years: 6.00 Types: Cigarettes Last attempt to quit: 06/04/2009 Years since quittin.7 Smokeless tobacco: Never Substance Use Topics Alcohol use: Yes Comment: 6-7 drinks twice monthly Drug use: No Review of Systems Constitutional: Positive for fever. Eyes: Negative for photophobia, pain, discharge, redness and itching. Respiratory: Negative for apnea, cough, choking and chest tightness. Cardiovascular: Negative for chest pain, palpitations and leg swelling. Gastrointestinal: Positive for abdominal pain. Negative for anorexia, flatus, melena, nausea and vomiting. Genitourinary: Negative for hematuria. Musculoskeletal: Negative for arthralgias. Skin: Negative for color change, pallor, rash and wound. Allergic/Immunologic: Negative for environmental allergies, food allergies and immunocompromised state. Neurological: Negative for dizziness, facial asymmetry, light-headedness, numbness and headaches. Psychiatric/Behavioral: Negative for agitation and behavioral problems. Objective BP 156/88 Pulse 112 Temp (!) 38.3 C (101 F) (Tympanic) Resp 16 Wt 125.7 kg (277 lb 1.9 oz) SpO2 97% Physical Exam Vitals and nursing note reviewed. Constitutional: General: He is not in acute distress. Appearance: Normal appearance. He is obese. He is not ill-appearing, toxic-appearing or diaphoretic. Comments: Febrile HENT: Head: Normocephalic and atraumatic. Right Ear: External ear normal. Left Ear: External ear normal. Nose: Nose normal. Mouth/Throat: Mouth: Mucous membranes are moist. Pharynx: Oropharynx is clear. Cardiovascular: Rate and Rhythm: Regular rhythm. Pulses: Normal pulses. Heart sounds: Normal heart sounds. No murmur heard. No friction rub. No gallop. Pulmonary: Effort: Pulmonary effort is normal. No respiratory distress. Breath sounds: Normal breath sounds. No stridor. No wheezing, rhonchi or rales. Chest: Chest wall: No tenderness. Abdominal: General: There is distension. Tenderness: There is abdominal tenderness (right lower quadrant and left lower quadrant). Musculoskeletal: General: No swelling, tenderness, deformity or signs of injury. Normal range of motion. Cervical back: Normal range of motion and neck supple. No rigidity or tenderness. Right lower leg: No edema. Left lower leg: No edema. Lymphadenopathy: Cervical: No cervical adenopathy. Skin: General: Skin is warm and dry. Capillary Refill: Capillary refill takes less than 2 seconds. Coloration: Skin is not jaundiced or pale. Findings: No bruising, lesion or rash. Neurological: General: No focal deficit present. Mental Status: He is alert and oriented to person, place, and time. Cranial Nerves: No cranial nerve deficit. Sensory: No sensory deficit. Motor: No weakness. Coordination: Coordination normal. Gait: Gait normal. Deep Tendon Reflexes: Reflexes normal. Psychiatric: Mood and Affect: Mood normal. Behavior: Behavior normal. Thought Content: Thought content normal. Assessment and Plan ASSESSMENT/PLAN: 1. Lower abdominal pain - ICD9: 789.09, ICD10: R10.30 Etiology unclear Differential Diagnosis includes Gastritis, IBS, Constipation, Diverticulitis, Appendicitis, and Cystitis - Patient presents after lab closes Unable to rule in and or out intraabdominal process +fever + tachycardia Will refer to ED Mary Mulligan APRN.APPLIQUER ZIGZAG documented in this encounter [facility] Evaluation note Note Date & Type Note Facility Evaluation note Diagnosis Lower abdominal pain- Primary Abdominal pain, other specified site documented in this encounter [facility] Summary Purpose Family History No Family History Records Found Advance Directives No Advanced Directives Records Found Additional Source Comments Source Comments (unrecognize d section and content) In the event this informatio n is protected by the Federal Confidentiality of Alcohol and Drug Abuse Patient Records regulations: The Federal rules restrict any use of the information to criminally investigate or prosecute any alcohol or drug abuse patient.[facility] Reason for Visit (unrecogniz ed section and content) Reason Comments Fever Fever, stomache, fat igue x 3 days (unrecognized sect ion and content) No Status Records Found INFORMATION SOURCE (unrecogn ized section and content) DATE CREATED AUTHOR 02/25/2024 [facility] FOR RECORDS PERTAINING TO PATIENTS WHO ARE OR HAVE BEEN ENROLLED IN A CHEMICAL DEPENDENCY/SUBSTANCEABUSE PROGRAM, SOME INFORMATION MAY BE OMITTED. This clinical summary was aggregated from multiple sources. Caution should be exercised in using it in the provision of clinical care. This summary normalizes information from multiple sources, and as a consequence, information in this document may materially change the coding, format and clinical context of patient data. In addition, data may be omitted in some cases. CLINICAL DECISIONS SHOULD BE BASED ON THE PRIMARY CLINICAL RECORDS. [employer] [facility]. provides no warranty or guarantee of the accuracy or completeness of information in this document.
[2024-07-01 11:08] LABS: ALB/GLOB Ratio 1.1 RATIO (0.9-2.4); AST(SGOT) 15 U/L (15-37); Alanine Aminotransfer ALT/SGPT 21 U/L (16-61); Alkaline Phosphatase 70 U/L (45-117); Anion Gap 6 (5-15); BUN 14 mg/dL (7-18); BUN/Creat Ratio 13.3 RATIO (10-20); Calcium,Total 9.4 mg/dL (8.5-10.1); Chloride 108 mmol/L (98-107); Cholesterol 224 mg/dL (200); Creatinine, Serum 1.05 mg/dL (0.70-1.30); EST Glomerular Filtration Rate 82 mL/min (>60); Est Glom Filt Rate - Afr Amer 99 mL/min (>60); Globulin 3.6 g/dL (2.2-4.2); Glucose 109 mg/dL (74-106); High Density Lipoprotein 51 mg/dL; PSA,Total - Annual Screen 0.55 ng/mL (0.00-4.00); Potassium 4.3 mmol/L (3.5-5.1); Protein, Total 7.6 g/dL (6.4-8.2); Sodium Level 141 mmol/L (136-145); Triglycerides 168 mg/dL; Very Low Density Lipoprotein 34 mg/dL (5-40)
[2024-07-01 11:38] LABS: Hemoglobin A1c 5.4 % (3.8-5.6)
== END | disposition home or self-care (01) ==
LOC: MTLAB 07:06
PROVIDERS: PCP Family Medicine; Referring Provider Family Medicine; Visit Provider Family Medicine
DX: Z00.01 Encounter for general adult medical examination with abnormal findings (principal); E66.01 Morbid (severe) obesity due to excess calories; E78.00 Pure hypercholesterolemia, unspecified; E66.812 Obesity, class 2; Z68.37 Body mass index [BMI] 37.0-37.9, adult; Z12.5 Encounter for screening for malignant neoplasm of prostate
CPT/HCPCS: 36415; 80053; 80061; 83036; 84153; G0103

== ENCOUNTER → 2024-09-16 | Outpatient (CLI) | payer OTHER, SELFPAY ==
[2024-09-16 12:27] LABS: ALB/GLOB Ratio 1.1 RATIO (0.9-2.4); AST(SGOT) 17 U/L (15-37); Alanine Aminotransfer ALT/SGPT 33 U/L (16-61); Albumin, Serum 4.1 g/dL (3.2-5.0); Alkaline Phosphatase 80 U/L (45-117); Anion Gap 4 (5-15); BUN 15 mg/dL (7-18); BUN/Creat Ratio 13.9 RATIO (10-20); Calcium,Total 9.7 mg/dL (8.5-10.1); Chloride 107 mmol/L (98-107); Cholesterol 211 mg/dL (200); Creatinine, Serum 1.08 mg/dL (0.70-1.30); EST Glomerular Filtration Rate 79 mL/min (>60); Est Glom Filt Rate - Afr Amer 96 mL/min (>60); Globulin 3.9 g/dL (2.2-4.2); Glucose 95 mg/dL (74-106); High Density Lipoprotein 49 mg/dL; Potassium 4.3 mmol/L (3.5-5.1); Sodium Level 138 mmol/L (136-145); Triglycerides 180 mg/dL; Very Low Density Lipoprotein 36 mg/dL (5-40)
== END | disposition home or self-care (01) ==
LOC: MTLAB 09:26
PROVIDERS: PCP Family Medicine; Referring Provider Family Medicine; Visit Provider Family Medicine
DX: E78.1 Pure hyperglyceridemia (principal); E66.01 Morbid (severe) obesity due to excess calories; E66.812 Obesity, class 2; Z68.37 Body mass index [BMI] 37.0-37.9, adult
CPT/HCPCS: 36415; 80053; 80061